=== PATIENT | male | born 1985 | race Caucasian/White ===

== ENCOUNTER 2020-04-05 21:30 | Emergency (ER) | payer OTHER, SELFPAY ==
--- NOTE | ~2020-04-05 | XR_ITS ---
EXAMINATION: XR chest 1V portable EXAM DATE: 04/05/2020 22:01 INDICATION: Left-sided chest pain, shortness of breath. Hypertension. TECHNIQUE: Portable AP frontal chest x-ray was obtained. Comparison is made to prior examination from 04/11/2018. FINDINGS: The lungs are clear. There are no pleural effusions. The cardiomediastinal silhouette is within normal limits. There is no pneumothorax suspected. The bones and soft tissues are unremarkab le. IMPRESSION: No acute cardiopulmonary findings. Reviewed, dictated and finalized at location A. STANT PURCHASING MANAGER
--- NOTE | 2020-04-05 21:37 | ECG_ITS ---
Measurements Intervals [place] Rate: 88 P: 38 NV: 181 QRS: 70 QRSD: 93 T: 41 QT: 353 QTc: 428 Interpretive Statements SINUS RHYTHM ATRIAL PREMATURE COMPLEX BORDERLINE ECG Electronically Signed On 04-06-2020 6:45:37 VERIFICATION MANAGER by Antolin Alvarado D.O.
[2020-04-05 21:40] VITALS: BP 134/100; PULSE 80; RESP 16; TEMP 36.6; O2SAT 98
--- NOTE | 2020-04-05 21:50 | ED.CHESTPAIN ---
HPI - Chest Pain General Chief Complaint: Chest Pain Stated Complaint: chest pain Time Seen by Provider: 04/05/20 21:36 Source: patient Mode of arrival: ambulatory Limitations: no limitations History of Present Illness HPI narrative: Pt is 34 yo M, c/o chest pain, left chest wall, sharp, non radiating, worse with movement and palpation, 09/09, started today. Denies sob, abd pain, n/v, diaphoresis, fever or chills. MD complaint: chest pain Related Data Home Medications Medication Instructions Recorded Confirmed amlodipine 04/05/20 04/05/20 citalopram mg 04/05/20 cyclobenzaprine mg 04/05/20 famotidine 04/05/20 hydrocodone-acetaminophen 04/05/20 irbesartan mg 04/05/20 lisdexamfetamine [Vyvanse] mg 04/05/20 rosuvastatin mg 04/05/20 tadalafil mg 04/05/20 Allergies Allergy/AdvReac Type Severity Reaction Status Date / Time paroxetine Allergy Mild FACIAL RASH Verified 04/05/20 22:01 Penicillins Allergy Unknown Other Verified 04/05/20 22:01 Review of Systems Review of Systems: All systems reviewed & are unremarkable except as noted in HPI and below Constitutional: Constitutional: Denies body ache(s), Denies chills, Denies excessive sweating, Denies fatigue, Denies fever(s), Denies headache(s), Denies lethargy, Denies malaise, Denies weakness and Denies weight loss Eyes: Eyes: Denies blurry vision, Denies change in vision and Denies loss of vision ENT: Denies dizziness, Denies ear discharge, Denies headache(s), Denies lip swelling, Denies epistaxis, Denies nasal congestion, Denies neck pain, Denies throat swelling and Denies tongue swelling Cardiovascular: Cardiovascular: Denies diaphoresis, Denies rapid heart rate, Denies edema, Denies irregular heart rhythm, Denies lightheadedness, Denies palpitations, Denies dyspnea and Denies dyspnea on exertion Respiratory: Respiratory: Denies chest congestion, Denies cough, Denies hemoptysis, Denies dyspnea and Denies dyspnea on exertion Gastrointestinal: Gastrointestinal: Denies abdominal pain, Denies melena, Denies hematochezia, Denies diarrhea, Denies nausea, Denies vomiting and Denies hematemesis Musculoskeletal: Musculoskeletal: Denies abnormal gait, Denies deformity, Denies joint swelling, Denies limited range of motion, Denies neck pain and Denies numbness Neurologic: Denies Abnormal speech present, Denies abnormal gait, Denies confusion, Denies dizziness, Denies headache(s), Denies focal weakness, Denies loss of vision, Denies numbness, Denies Other visual disturbances, Denies Sensory deficit (Neuro) and Denies weakness Psychiatric: Psychiatric: Denies confusion, Denies depression, Denies auditory hallucinations, Denies homicidal ideation and Denies suicidal ideation Endocrine: Endocrine: Denies cold intolerance, Denies excessive sweating, Denies fatigue, Denies heat intolerance and Denies palpitations Hematologic/Lymphatic: Hematologic/Lymphatic: Denies easy bleeding and Denies easy bruising Allergic/Immunologic: Allergic/Immunologic: Denies lip swelling, Denies throat swelling and Denies tongue swelling Exam Const: General: cooperative, healthy appearing, comfortable, no acute distress, well developed, alert and awake; No confusion Orientation/consciousness: oriented to person, oriented to place, oriented to time, patient oriented x3 and No confusion Limitations: no limitations HENMT: Head: normal to inspection, normocephalic and atraumatic Ears: hearing grossly normal bilaterally, TM normal on the right and TM normal on the left General nose exam: Normal external nose present, Normal nares present and No nasal discharge present Face and sinus: normal facial exam Mouth: Yes Normal oral and palatal mucosa present, Yes lip normal, Yes tongue normal and Yes oropharynx normal Throat: posterior oropharynx normal, tonsils normal and uvula midline Eyes: General: appearance normal, both eyes and all related structures Pupils: Equal, round and reactive pupils present EOM: E
[2020-04-05 21:52] LABS: Basophils Percent Auto 0.2 % (0.2-1.2); Eosinophils Absolute Auto 0.1 K/mm3 (0-0.3); Eosinophils Percent Auto 1.3 % (0-4.4); Hematocrit 44.3 % (42.0-52.0); Hemoglobin 15.7 g/dL (14.0-18.0); Immature Granulocyte Absolute 0.02 K/mm3 (0.00-0.031); Immature Granulocyte Percent A 0.2 % (0-0.5); Lymphocytes Absolute Auto 3.85 K/mm3 (0.9-3.2); Lymphocytes Percent Auto 46.8 % (18.3-44.2); Mean Corpuscular HGB Conc 35.4 g/dl (32-36); Mean Corpuscular Volume 81.7 fl (80-100); Mean Platelet Volume 11.9 fl (7.4-10.4); Monocytes Absolute Auto 0.8 K/mm3 (0.1-0.6); Monocytes Percent Auto 9.7 % (2.6-8.5); Neutrophils Absolute Auto 3.4 K/mm3 (1.3-6.7); Neutrophils Percent Auto 41.8 % (45.5-73.1); Platelet Count Result 149 k/mm3 (150-375); Red Blood Count 5.42 M/mm3 (4.6-6.20); Red Cell Distribution Width 12.6 % (11.5-14.5); White Blood Count 8.2 K/mm3 (4.5-10.0)
[2020-04-05 22:01] LABS: INR 0.9; Prothrombin Time 12.8 Seconds (11.1-14.7)
[2020-04-05 22:02] LABS: Partial Thromboplastin Time 24.2 SECONDS (22.3-36.8)
[2020-04-05 22:04] LABS: Alanine Aminotransferase 61 U/L (4-50); Albumin Level 4.5 g/dL (3.5-5.1); Alkaline Phosphatase 61 U/L (38-126); Anion Gap 10 mmol/L (8-16); Aspartate Amino Transferase 34 U/L (17-59); Bilirubin,Total 0.6 mg/dL (0.2-1.3); Blood Urea Nitrogen 13 mg/dL (9-20); Calcium 9.4 mg/dL (8.4-10.2); Carbon Dioxide 26 mmol/L (22-30); Chloride 102 mmol/L (98-107); Estimated CRCL calculation 124 ml/min; Estimated Glomerular Filt Rate > 60; Glucose 102 mg/dL (75-110); Sodium 138 mmol/L (137-145)
[2020-04-05 22:15] LABS: Troponin I < 0.012 ng/mL (0.000-0.034)
[2020-04-05 22:16] VITALS: PULSE 86; RESP 21; O2SAT 96
[2020-04-05 22:17] VITALS: PULSE 92; RESP 19; O2SAT 90
--- NOTE | 2020-04-05 22:38 | PC.NURSE ---
extra large BP cuff placed on patient. lights turned off per his request. denies any other needs. has call light in reach.
[2020-04-05 22:52] VITALS: PULSE 83; RESP 27
[2020-04-05 23:00] VITALS: BP 143/103; PULSE 87; RESP 18; O2SAT 96
--- NOTE | 2020-04-05 23:01 | PC.NURSE ---
resting on stretcher. no change in condition. on playground monitor. has call light in reach.
[2020-04-05 23:34] VITALS: BP 140/105; PULSE 82; RESP 17; O2SAT 97
[2020-04-06] VITALS: BP 137/99; PULSE 84; RESP 17; O2SAT 96
[2020-04-06 01:15] VITALS: BP 139/102; PULSE 82; RESP 18; O2SAT 96
[2020-04-06 01:26] LABS: Troponin I < 0.012 ng/mL (0.000-0.034)
== END 2020-04-06 01:40 | disposition home or self-care (01) ==
PROVIDERS: Emergency Provider Emergency Medicine; PCP Emergency Medicine
DX: R07.89 Other chest pain (principal)
CPT/HCPCS: 36415; 71045; 80053; 84484; 85025; 85610; 85730; 93005; 99284

== ENCOUNTER 2020-07-23 08:32 | Outpatient (CLI) | payer OTHER, SELFPAY ==
--- NOTE | ~2020-07-23 | US_ITS ---
US abdomen complete DATE: 07/23/2020 08:59 INDICATION: Elevated liver function tests TECHNIQUE: Real-time imaging and Doppler analysis of the abdomen COMPARISON: None FINDINGS: The pancreas is largely obscured by overlying bowel gas. Hepatic steatosis. Normal hepatopedal portal venous flow direction. No gallstones or gallbladder wall thickening or pericholecystic fluid is evident. Negative sonographi c Rodriguez's sign. The common bile duct measures 4.6 mm, normal. No renal mass lesion or hydronephrosis. Normal caliber of the abdominal aorta. The inferior vena cava is unremarkable. Splenic size is within normal range. IMPRESSION: Hepatic steatosis Pancreas is obscured Reviewed, dictated and finalized at Location A. Reviewed, dictated and finalized at location A.
== END 2020-07-23 08:33 | disposition home or self-care (01) ==
PROVIDERS: PCP Emergency Medicine; Visit Provider Emergency Medicine
DX: R79.89 Other specified abnormal findings of blood chemistry (principal); K76.0 Fatty (change of) liver, not elsewhere classified
CPT/HCPCS: 76700

== ENCOUNTER → 2020-12-23 01:55 | Outpatient (CLI) | payer OTHER, SELFPAY ==
[2020-12-23 17:06] LABS: SARS-CoV-2 RNA PCR Negative
== END ==
PROVIDERS: PCP Emergency Medicine; Visit Provider Emergency Medicine
DX: Z20.822 Contact with and (suspected) exposure to COVID-19 (principal)
CPT/HCPCS: C9803; U0003; U0005

== ENCOUNTER → 2020-12-25 12:09 | Outpatient (CLI) | payer OTHER, SELFPAY ==
--- NOTE | ~2020-12-25 | XR_ITS ---
EXAMINATION: XR chest 2V DATE: 12/25/2020 12:22 INDICATION: One week of productive cough TECHNIQUE: frontal and lateral views of the chest were obtained. COMPARISON: Chest radiograph dated 04/05/2020 FINDINGS: The lungs remain clear with no focal airspace opacities, pulmonary edema, pleural effusion or pneumot horax. The cardiomediastinal silhouette is normal. Visualized bones and soft tissues are unremarkable . IMPRESSION: 1. No acute cardiopulmonary disease. Reviewed, dictated and finalized at location A.
== END ==
PROVIDERS: PCP Emergency Medicine; Visit Provider Emergency Medicine
DX: J20.9 Acute bronchitis, unspecified (principal)
CPT/HCPCS: 71046

== ENCOUNTER 2020-12-26 14:20 | Emergency (ER) | payer OTHER, SELFPAY ==
--- NOTE | ~2020-12-26 | XR_ITS ---
EXAMINATION: XR foot LT min 3V DATE: 12/26/2020 18:42 INDICATION: Left foot pain at the great toe. TECHNIQUE: Dorsoplantar, two oblique and lateral views of the left foot were obtained. COMPARISON: None. FINDINGS: Bone alignment is normal. No fracture. Mild osteoarthritis at the first metatarsophalangeal joint. Th ere does appear to be a small juxta articular erosion with overhanging edge at the medial head of the first metatarsal which would be typical location and appearance for gout. No other erosions identifi ed. IMPRESSION: 1. Tiny juxta articular erosion at the medial head of the first metatarsal which is nonspecific but w hich would be typical location and appearance for gout. 2. Mild osteoarthritis at the first metatarsophalangeal joint. Reviewed, dictated and finalized at location A. IMPRESSION: 1. Tiny juxta articular erosion at the medial head of the first metatarsal whic h is nonspecific but which would be typical location and appearance for gout. 2. Mild osteoarthritis at the first metatarsophalangeal joint.
[2020-12-26 14:34] VITALS: BP 148/98; PULSE 99; RESP 18; TEMP 36; O2SAT 97
[2020-12-26 18:20] VITALS: BP 140/88; PULSE 90; RESP 18; O2SAT 98
--- NOTE | 2020-12-26 18:33 | ED.LOWEXIN ---
HPI - Extremity Injury (Lower) General Chief Complaint: Extremity Injury, Lower Stated Complaint: foot swelling Time Seen by Provider: 12/26/20 18:23 Source: patient Mode of arrival: ambulatory Limitations: no limitations History of Present Illness HPI Narrative: This is a 35 year old male that presents to the emergency department for left great toe pain since yesterday. Reports swelling and warmth to the area. No known injury or trauma. No history of gout. Denies fever or erythema. Related Data Home Medications Medication Instructions Recorded Confirmed amlodipine 04/05/20 04/05/20 citalopram mg 04/05/20 cyclobenzaprine mg 04/05/20 famotidine 04/05/20 hydrocodone-acetaminophen 04/05/20 irbesartan mg 04/05/20 lisdexamfetamine [Vyvanse] mg 04/05/20 rosuvastatin mg 04/05/20 tadalafil mg 04/05/20 Allergies Allergy/AdvReac Type Severity Reaction Status Date / Time paroxetine Allergy Mild FACIAL RASH Verified 12/26/20 18:20 Penicillins Allergy Unknown Other Verified 12/26/20 18:20 Review of Systems Review of Systems: CONSTITUTIONAL: Denies fever SKIN: Denies rash MUSCULOSKELETAL: Reports joint pain, and myalgia. NEUROLOGIC: Denies numbness All systems reviewed & are unremarkable except as noted in HPI and below PMFSH Past Medical History Medical History (Updated 12/26/20 @ 19:05 by Staci Epstein PA-C) Hypertension Surgical History Surgical History (System 11/08/20 @ 11:26 by Saul White) Biceps tendon rupture with surgical repair. Social History Social History (Updated 12/26/20 @ 18:34 by Staci Epstein PA-C) Smoking status: Never smoker Alcohol use details: Occassional Gender identity (if verbalized by the patient): Male Exam Narrative: GENERAL: Well-appearing, well-nourished, and in no acute distress. HEAD: Normocephalic, atraumatic. EYES: EOMI. EXTREMITIES: Normal range of motion. Mild edema about the left first MTP joint. No erythema or warmth. Normal DP pulses. Normal sensation SKIN: Warm, dry, no rash. NEURO: No focal deficits. Alert and oriented x3. PSYCH: Normal mood and affect Course Vital Signs Vital signs: Vital Signs Temperature 96.8 F L 12/26/20 14:34 Pulse Rate 99 12/26/20 14:34 Respiratory Rate 18 12/26/20 14:34 Blood Pressure 148/98 H 12/26/20 14:34 Pulse Oximetry 97 12/26/20 14:34 Temperature 96.8 F L 12/26/20 14:34 Pulse Rate 90 12/26/20 18:20 Respiratory Rate 18 12/26/20 18:20 Blood Pressure 140/88 12/26/20 18:20 Pulse Oximetry 98 12/26/20 18:20 MDM - Extremity Injury (Lower) MDM Narrative Medical decision making narrative: Patient presents to the emergency department for left great toe pain present since yesterday. He is afebrile and nontoxic-appearing. Symptoms seem consistent with possible gout flare. Mild leukocytosis on CBC to 11.3. CRP is mildly elevated. Uric acid is also elevated. Left foot x-ray shows findings consistent with gout at the first MTP joint. Patient was updated on case findings. Will be started on steroid taper and anti-inflammatory. He is to follow-up with his primary care doctor. He was given warnings to return to the ER Lab Data Attestation: I reviewed the patient's lab results. Result diagrams: 12/26/20 19:20 12/26/20 19:20 Labs: Lab Results 12/26/20 12/26/20 Range/Units 19:20 19:20 WBC 11.3 H (4.5-10.0) K/mm3 RBC 5.34 (4.6-6.20) M/mm3 Hgb 15.4 (14.0-18.0) g/dL Hct 45.7 (42.0-52.0) % MCV 85.6 (80-100) fl MCH 28.8 (26-34) pg MCHC 33.7 (32-36) g/dl RDW 12.3 (11.5-14.5) % Plt Count 197 (150-375) k/mm3 MPV 10.7 H (7.4-10.4) fl Immature Gran % (Auto) 1.1 H (0-0.5) % Neut % (Auto) 69.5 (45.5-73.1) % Lymph % (Auto) 21.0 (18.3-44.2) % [place] % (Auto) 7.6 (2.6-8.5) % Eos % (Auto) 0.5 (0-4.4) % Baso % (Auto) 0.3 (0.2-1.2) % Lymph # (Auto) 2.37 (0.9-3.2) K/mm3 [place] # (Auto
[2020-12-26] MEDS: INDOMETHACIN 25 MG CAPSULE 50 MG PO (19:20)
[2020-12-26] MEDS: predniSONE 20 MG TABLET 40 MG PO (19:22)
[2020-12-26 19:24] LABS: Basophils Percent Auto 0.3 % (0.2-1.2); Eosinophils Absolute Auto 0.1 K/mm3 (0-0.3); Eosinophils Percent Auto 0.5 % (0-4.4); Hematocrit 45.7 % (42.0-52.0); Hemoglobin 15.4 g/dL (14.0-18.0); Immature Granulocyte Absolute 0.12 K/mm3 (0.00-0.031); Immature Granulocyte Percent A 1.1 % (0-0.5); Lymphocytes Absolute Auto 2.37 K/mm3 (0.9-3.2); Mean Corpuscular HGB Conc 33.7 g/dl (32-36); Mean Corpuscular Hemoglobin 28.8 pg (26-34); Mean Corpuscular Volume 85.6 fl (80-100); Mean Platelet Volume 10.7 fl (7.4-10.4); Monocytes Absolute Auto 0.9 K/mm3 (0.1-0.6); Monocytes Percent Auto 7.6 % (2.6-8.5); Neutrophils Absolute Auto 7.8 K/mm3 (1.3-6.7); Neutrophils Percent Auto 69.5 % (45.5-73.1); Platelet Count Result 197 k/mm3 (150-375); Red Blood Count 5.34 M/mm3 (4.6-6.20); Red Cell Distribution Width 12.3 % (11.5-14.5); White Blood Count 11.3 K/mm3 (4.5-10.0)
[2020-12-26 19:42] LABS: Anion Gap 11 mmol/L (8-16); Blood Urea Nitrogen 13 mg/dL (9-20); CRP 1.9 mg/dL (<1.0); Calcium 9.7 mg/dL (8.4-10.2); Carbon Dioxide 30 mmol/L (22-30); Chloride 99 mmol/L (98-107); Estimated CRCL calculation 111 ml/min; Estimated Glomerular Filt Rate > 60; Glucose 100 mg/dL (65-110); Potassium 4.2 mmol/L (3.4-5.0); Sodium 140 mmol/L (137-145); Uric Acid 9.3 mg/dL (3.5-8.5)
[2020-12-26 19:56] LABS: Erythrocyte Sedimentation Rate 10 mm/hr (0-20)
[2020-12-26 20:37] VITALS: BP 141/84; PULSE 84; RESP 18; O2SAT 98
== END 2020-12-26 20:38 | disposition home or self-care (01) ==
PROVIDERS: Physician Assistant; Emergency Provider Emergency Medicine; PCP Emergency Medicine
DX: M10.9 Gout, unspecified (principal); I10 Essential (primary) hypertension
CPT/HCPCS: 36415; 73630; 80048; 84550; 85025; 85652; 86140; 99283; A9270; J7512

== ENCOUNTER 2020-12-30 11:12 | Outpatient (CLI) | payer OTHER, SELFPAY ==
--- NOTE | ~2020-12-30 | US_ITS ---
EXAMINATION: US venous doppler [facility] EXAM DATE: 12/30/2020 11:47 INDICATION: Left lower extremity pain. TECHNIQUE: Multiple grayscale, color flow and Doppler images of the left lower extremity deep venous system were obtained and reviewed. There is no prior study for comparison. FINDINGS: The left common femoral, femoral and profunda veins demonstrate normal color flow, respirat ory variation, augmentation and compressibility. Compressibility, color flow confirmed within the le ft popliteal, posterior tibial, peroneal, and greater saphenous veins. IMPRESSION: 1. No left lower extremity deep venous thrombosis. Reviewed, dictated and finalized at location A.
== END 2020-12-30 11:13 | disposition home or self-care (01) ==
PROVIDERS: PCP Emergency Medicine; Visit Provider Emergency Medicine
DX: M79.662 Pain in left lower leg (principal)
CPT/HCPCS: 93971

== ENCOUNTER → 2021-01-29 00:43 | Outpatient (CLI) | payer OTHER, SELFPAY ==
[2021-01-29 18:23] LABS: SARS-CoV-2 RNA PCR Negative
== END ==
PROVIDERS: PCP Emergency Medicine; Visit Provider Internal Medicine Gastroenterology
DX: Z01.812 Encounter for preprocedural laboratory examination (principal); Z20.822 Contact with and (suspected) exposure to COVID-19
CPT/HCPCS: C9803; U0003; U0005

== ENCOUNTER 2021-02-02 01:52 | Day surgery (SDC) | payer OTHER, SELFPAY ==
[2021-01-17 12:47] VITALS: BMI 40.9
[2021-02-02 08:59] VITALS: BP 129/95; PULSE 81; RESP 20; TEMP 36.3; O2SAT 98
[2021-02-02] MEDS: LACTATED RINGERS 1,000 ML 150 ML IV CONT (09:04)
--- NOTE | 2021-02-02 09:30 | WPDANESEPPF ---
Anes - Initial Pre Proc Eval Procedure: Operation Date: 02/02/21 10:00 Proposed Procedures p Colonoscopy - Siddhartha Anderson MD Date/Time: 02/02/21 09:30 Surgeon: Siddhartha Anderson MD Pre Op Diagnosis: IBS, Diarrhea Patient Data Age: 35 Gender: M Height: 1.78 m Weight: 128 kg Last Vital Signs Temp 97.3 F L 02/02/21 08:59 Pulse 81 02/02/21 08:59 Resp 20 02/02/21 08:59 BP 129/95 H 02/02/21 08:59 Pulse Ox 98 02/02/21 08:59 Allergies Allergy/AdvReac Type Severity Reaction Status Date / Time paroxetine Allergy Mild FACIAL RASH Verified 02/02/21 08:58 Penicillins Allergy Unknown Other Verified 02/02/21 08:58 Home Medications Medication Instructions Recorded Confirmed Type ondansetron 4 mg PO Q6H PRN #10 tablet 02/23/19 02/02/21 Rx amlodipine 10 mg PO DAILY 04/05/20 02/02/21 History citalopram 10 mg PO DAILY 04/05/20 02/02/21 History cyclobenzaprine 10 mg PO DAILY 04/05/20 02/02/21 History famotidine 20 mg PO DAILY 04/05/20 02/02/21 History hydrocodone-acetaminophen 1 tablet PO DAILY 04/05/20 02/02/21 History irbesartan 150 mg PO DAILY 04/05/20 02/02/21 History lisdexamfetamine [Vyvanse] 30 mg PO DAILY 04/05/20 02/02/21 History rosuvastatin 20 mg PO DAILY 04/05/20 02/02/21 History tadalafil 5 mg PO DAILY 04/05/20 02/02/21 History indomethacin 50 mg PO TID 5 Days #15 cap 12/26/20 02/02/21 Rx prednisone 10 mg PO DAILY #45 tablet 12/26/20 02/02/21 Rx Patient hx anesthesia problems: none Family hx anesthesia problems: none Results Review: All pre-operative results and documents have been reviewed as part of the pre-operative evaluation. [facility] Past Medical History Medical History (Updated 12/27/20 @ 00:01 by Background Darussell) Hypertension Surgical History Surgical History (System 11/08/20 @ 11:26 by Saul White) Biceps tendon rupture with surgical repair. Social History Social History (Updated 12/26/20 @ 18:34 by Staci Epstein PA-C) Smoking status: Never smoker Alcohol use details: Occassional Substance use type: does not use Gender identity (if verbalized by the patient): Male Anes - Eval Final PreProcedure Day of Procedure 02/02/21 09:30 Patient weight: morbidly obese Heart: regular rate and rhythm Lungs: clear to auscultation Airway: Mallampati scale class II Neurological: alert and oriented ASA classification: III Emergent: no Anesthetic plan: proceed Anesthesia type and monitoring: general GIVS and standard monitoring Results Review: All pre-operative results and documents have been reviewed as part of the pre-operative evaluation. Informed Consent: The patient's anesthetic plan and its attendant risks and benefits were discussed with the patient/family/POA. Questions were solicited and answers provided to the satisfaction of the patient/family/POA.
--- NOTE | 2021-02-02 09:57 | PM.HPGS ---
History of Present Illness History of Present Illness Consent: Risks, benefits, and alternatives have been discussed and questions answered. Patient agrees to proceed with procedure. Chief complaint: IBS, Diarrhea Narrative: Adrienne Navarrete Jr. is a 35 year old male with 2 years of post-prandial diarrhea and urgency, also bloating. Never had colonoscopy. No abdominal surgeries. Review of Systems Constitutional: Constitutional: Denies headache(s) and Denies weakness Eyes: Eyes: Denies blurry vision ENT: Reports Normal hearing present, Denies headache(s) and Denies neck pain Cardiovascular: Cardiovascular: Denies chest pain and Denies dyspnea Respiratory: Respiratory: Denies dyspnea Gastrointestinal: Gastrointestinal: Reports no additional gastrointestinal complaints Genitourinary: Genitourinary: Denies dysuria Musculoskeletal: Musculoskeletal: Denies neck pain Integumentary/Breasts: Skin/Breast: Denies dry skin Neurologic: Reports Normal hearing present, Denies headache(s) and Denies weakness Psychiatric: Psychiatric: Denies anxiety Endocrine: Endocrine: Denies change in body appearance Hematologic/Lymphatic: Hematologic/Lymphatic: Denies easy bleeding Allergic/Immunologic: Allergic/Immunologic: Denies urticaria PMFSH Past Medical History Medical History (Updated 02/02/21 @ 09:58 by Siddhartha Anderson MD) Bloating Chronic diarrhea Hypertension Surgical History Surgical History (System 11/08/20 @ 11:26 by Saul White) Biceps tendon rupture with surgical repair. Social History Social History (Updated 12/26/20 @ 18:34 by Staci Epstein PA-C) Smoking status: Never smoker Alcohol use details: Occassional Substance use type: does not use Gender identity (if verbalized by the patient): Male Meds Home Medications and Allergies Home Medications Medication Instructions Recorded Confirmed Type ondansetron 4 mg PO Q6H PRN #10 tablet 02/23/19 02/02/21 Rx amlodipine 10 mg PO DAILY 04/05/20 02/02/21 History citalopram 10 mg PO DAILY 04/05/20 02/02/21 History cyclobenzaprine 10 mg PO DAILY 04/05/20 02/02/21 History famotidine 20 mg PO DAILY 04/05/20 02/02/21 History hydrocodone-acetaminophen 1 tablet PO DAILY 04/05/20 02/02/21 History irbesartan 150 mg PO DAILY 04/05/20 02/02/21 History lisdexamfetamine [Vyvanse] 30 mg PO DAILY 04/05/20 02/02/21 History rosuvastatin 20 mg PO DAILY 04/05/20 02/02/21 History tadalafil 5 mg PO DAILY 04/05/20 02/02/21 History indomethacin 50 mg PO TID 5 Days #15 cap 12/26/20 02/02/21 Rx prednisone 10 mg PO DAILY #45 tablet 12/26/20 02/02/21 Rx Allergies Allergy/AdvReac Type Severity Reaction Status Date / Time paroxetine Allergy Mild FACIAL RASH Verified 02/02/21 08:58 Penicillins Allergy Unknown Other Verified 02/02/21 08:58 Vital Signs Vital Signs - 24 hr 02/02/21 08:59 Temperature 97.3 F L Pulse Rate 81 Respiratory Rate 20 Blood Pressure 129/95 H Pulse Oximetry 98 Exam Const: General: comfortable and no acute distress HENMT: General nose exam: Normal nares present Eyes: General: appearance normal, both eyes and all related structures Neck: Neck: no JVD Resp: Auscultation: clear to auscultation bilaterally Cardio: Rate: regular rate Rhythm: regular rhythm GI: Inspection: non-distended GI Palp: Yes Soft to palpation Skin: General skin exam: normal color Neuro: General: gait normal Speech: normal speech Extrem: General: normal to inspection Psych: Mental Status: mental status grossly normal Assessment and Plan Assessment and plan (1) Chronic diarrhea: Code(s): K52.9 - Noninfective gastroenteritis and colitis, unspecified Status: Acute Assessment and Plan: colonoscopy with random colon bx, ? IBS, colitis (2) Bloating: Code(s): R14.0 - Abdominal distension (gaseous) Status: Acute Assessment and Plan: will get serology for celiac disease
[2021-02-02 10:15] VITALS: BP 108/73; PULSE 84; RESP 24; O2SAT 100
[2021-02-02 10:25] VITALS: BP 137/97; PULSE 89; RESP 20; O2SAT 100
[2021-02-02 10:35] VITALS: BP 140/96; PULSE 69; RESP 20; O2SAT 100
== END 2021-02-02 10:49 | disposition home or self-care (01) ==
PROVIDERS: PCP Emergency Medicine; Visit Provider Internal Medicine Gastroenterology
PROC: 0DJD8ZZ Inspection of Lower Intestinal Tract, Via Natural or Artificial Opening Endoscopic (ICD-10-PCS; CPT 45378; principal; 2021-02-02 10:00)
DX: K58.0 Irritable bowel syndrome with diarrhea (principal); K62.1 Rectal polyp; K64.8 Other hemorrhoids; I10 Essential (primary) hypertension; R14.0 Abdominal distension (gaseous); E66.01 Morbid (severe) obesity due to excess calories; Z68.41 Body mass index [BMI] 40.0-44.9, adult
CPT/HCPCS: 45380; 88305; J2704; J7120

== ENCOUNTER 2021-02-14 12:24 | Outpatient (CLI) | payer OTHER, SELFPAY ==
[2021-02-17 21:44] LABS: Tissue Transglutaminase IgG Ab <1.0 U/mL (<15.0)
== END 2021-02-14 12:25 | disposition home or self-care (01) ==
LOC: ANHLAB 12:25
PROVIDERS: PCP Emergency Medicine; Visit Provider Internal Medicine Gastroenterology
DX: R14.0 Abdominal distension (gaseous) (principal); K52.9 Noninfective gastroenteritis and colitis, unspecified
CPT/HCPCS: 36415; 83516

== ENCOUNTER 2021-10-09 10:10 | Emergency (ER) | payer OTHER, SELFPAY ==
--- NOTE | ~2021-10-09 | XR_ITS ---
EXAMINATION: XR knee LT 3V DATE: 10/09/2021 11:15 INDICATION: Medial left knee pain TECHNIQUE: Anteroposterior, oblique and crosstable lateral views of the left knee were obtained COMPARISON: None. FINDINGS: Alignment is normal. No fracture. No joint effusion/layering lipohemarthrosis. Soft tissues are unre markable. IMPRESSION: 1. Negative left knee radiographs. Reviewed, dictated and finalized at location A.
[2021-10-09 10:16] VITALS: BP 143/96; PULSE 86; RESP 16; TEMP 36.4; O2SAT 97
[2021-10-09] MEDS: NAPROXEN 500 MG TABLET PO (10:52)
--- NOTE | 2021-10-09 11:03 | PC.NURSE ---
Patient report given to ANSHUL Das. All questions answered and care of patient transferred.
--- NOTE | 2021-10-09 12:20 | ED.LOWEXIN ---
HPI - Extremity Injury (Lower) General Chief Complaint: Extremity Injury, Lower Stated Complaint: left knee injury - fell 1 month ago and again yest Time Seen by Provider: 10/09/21 10:36 History of Present Illness HPI Narrative: 36-year-old male presents emergency room secondary to pain to his left knee. States several weeks ago he slipped off the back of his truck and injured a medial aspect of his left knee. He been hobbling on it ever since. Then yesterday he fell again injuring the knee again. This is the first time he sought any medical care for it. He is able to bear weight on it but hurts to do so. Denies any chronic ongoing issues with his knee. Related Data Home Medications Medication Instructions Recorded Confirmed amlodipine 10 mg tablet 10 mg PO DAILY 04/05/20 02/02/21 citalopram 10 mg tablet 10 mg PO DAILY 04/05/20 02/02/21 cyclobenzaprine 10 mg tablet 10 mg PO DAILY 04/05/20 02/02/21 famotidine 20 mg tablet 20 mg PO DAILY 04/05/20 02/02/21 hydrocodone 7.5 mg-acetaminophen 1 tablet PO DAILY 04/05/20 02/02/21 325 mg tablet irbesartan 150 mg tablet 150 mg PO DAILY 04/05/20 02/02/21 lisdexamfetamine 30 mg capsule 30 mg PO DAILY 04/05/20 02/02/21 (Vyvanse) rosuvastatin 20 mg tablet 20 mg PO DAILY 04/05/20 02/02/21 tadalafil 5 mg tablet 5 mg PO DAILY 04/05/20 02/02/21 allopurinol 100 mg tablet tablet 10/09/21 trazodone 50 mg tablet tablet 10/09/21 Allergies Allergy/AdvReac Type Severity Reaction Status Date / Time paroxetine Allergy Mild FACIAL RASH Verified 10/09/21 10:53 Penicillins Allergy Unknown Other Verified 10/09/21 10:53 Review of Systems Review of Systems: CONSTITUTIONAL: Denies fever, chills, or sweats. EYES: Denies visual changes, redness, or discharge. ENT: Denies rhinorrhea, congestion, sore throat, or otalgia. CARDIOVASCULAR: Denies chest pain, palpitations, or edema. RESPIRATORY: Denies cough or dyspnea. GASTROINTESTINAL: Denies abdominal pain, nausea, vomiting, or diarrhea. GENITOURINARY: Denies dysuria or hematuria. SKIN: Denies rash or itching. MUSCULOSKELETAL: Pain to his left knee as noted in HPI NEUROLOGIC: Denies headache, numbness, or weakness. PSYCHIATRIC: Denies anxiety or depression. [facility] Past Medical History Medical History Bloating Chronic diarrhea Colon cancer screening GERD (gastroesophageal reflux disease) Hypertension Irritable bowel syndrome with diarrhea Obesity, morbid, BMI 40.0-49.9 Surgical History Surgical History Biceps tendon rupture with surgical repair. Social History Social History Smoking status: Never smoker Alcohol use details: Occassional Substance use type: does not use Gender identity (if verbalized by the patient): Male Exam Narrative: APPEARANCE: Well appearing, no pain or distress, well-nourished. Head normocephalic and atraumatic. EYES: PERRLA/EOMI, conjunctivae very clear. NOSE: Normal with no drainage EARS:TMS clear Aníbal Bobby, with good light reflex. THROAT: Pharynx clear, no exudate. NECK: Supple. No adenopathy, no masses. RESPIRATORY: Airway patent, respirations nonlabored. Clear to auscultation bilaterally, no rales, rhonchi, wheezing. CARDIOVASCULAR: Regular rate and rhythm without murmurs, rubs, or gallops. ABDOMINAL: Soft, nontender, nondistended, no hepatosplenomegaly Musculoskeletal: No edema is noted. Is no hip tenderness to palpation to the left knee on the medial aspect just inferior to the joint space. Pain with active or passive range of motion. There is no effusion. Good pulses. NEURO: Alert. Cranial nerves II through XII intact. Normal gait. Good coordination. Nonfocal examination. SKIN:: Warm, dry. Normal Color PSYCHIATRIC: Normal affect/mood, normal interaction Course Vital Signs Vital signs: Vital Signs Temperature 97.6 F 10/09/21
[2021-10-09 12:32] VITALS: BP 109/96; PULSE 84; RESP 16; O2SAT 98
== END 2021-10-09 12:33 | disposition home or self-care (01) ==
PROVIDERS: Emergency Provider Emergency Medicine; PCP Emergency Medicine
DX: M23.92 Unspecified internal derangement of left knee (principal); S89.92XA Unspecified injury of left lower leg, initial encounter; K21.9 Gastro-esophageal reflux disease without esophagitis; I10 Essential (primary) hypertension; K58.0 Irritable bowel syndrome with diarrhea; E66.01 Morbid (severe) obesity due to excess calories; Z68.41 Body mass index [BMI] 40.0-44.9, adult; W17.89XA Other fall from one level to another, initial encounter
CPT/HCPCS: 73562; 99283; A9270

== ENCOUNTER 2021-12-14 17:55 | Emergency (ER) | payer OTHER, SELFPAY ==
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
--- NOTE | ~2021-12-14 | CT_ITS ---
EXAMINATION: CT cervical spine wo con DATE: 12/14/2021 23:04 INDICATION: Neck pain TECHNIQUE: Computed tomography (CT) of the cervical spine was performed without intravenous contrast. The dose-length product (DLP) was 588.09 mGy-cm. Automated exposure control and iterative reconstruc tion technique were employed. COMPARISON: None FINDINGS: There is no fracture, dislocation, or subluxation. The vertebral body heights, alignment, a nd intervertebral disc spaces are normal. The paravertebral soft tissues are unremarkable. IMPRESSION: 1. No acute osseous abnormality. Reviewed, dictated and finalized at location B.
[2021-12-14 17:58] VITALS: BP 142/103; PULSE 94; RESP 14; TEMP 36.2; O2SAT 98
[2021-12-14 22:21] VITALS: BP 142/95; PULSE 82; RESP 16; O2SAT 94
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
--- NOTE | 2021-12-14 23:20 | PC.NURSE ---
Offered pain med to pt asks for 5 mins and will let RN know if wants
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
== END 2021-12-14 23:53 | disposition home or self-care (01) ==
PROVIDERS: Emergency Provider Emergency Medicine; PCP Emergency Medicine
DX: S16.1XXA Strain of muscle, fascia and tendon at neck level, initial encounter (principal); V43.52XA Car driver injured in collision with other type car in traffic accident, initial encounter
CPT/HCPCS: 70450; 72125; 99284

== ENCOUNTER 2022-03-06 19:36 | Emergency (ER) | payer OTHER, SELFPAY ==
[2022-03-06 20:11] VITALS: BP 158/116; PULSE 90; RESP 16; TEMP 37.2; O2SAT 99
[2022-03-06 20:34] LABS: Appearance Urine Clear (Clear); Bilirubin Urine Negative (Negative); Blood Urine Trace-intact (Negative); Color Urine Yellow (Yellow); Glucose Urine UA Negative (Negative); Ketones Urine Negative (Negative); Leukocyte Esterase Ur Negative LEU/UL (Negative); Nitrate Urine Negative (Negative); Protein Urine Negative (Negative); Specific Grav Ur >= 1.030 (1.001-1.035)
[2022-03-06 20:40] LABS: Mucus Urine Rare /lpf; Squamous Epithelial Cell Urine Rare /hpf (Few)
[2022-03-06 20:41] LABS: Add Urine Microscopic? YES
--- NOTE | 2022-03-06 21:40 | ED.GENADULT ---
HPI - General Adult General Chief complaint: Urogenital-Male Stated complaint: painful urination Time Seen by Provider: 03/06/22 20:51 History of Present Illness HPI narrative: 36-year-old male presented to the emergency department for evaluation of urethral irritation. Patient states he has had the irritation for extended period of time. Patient did have follow-up with his primary care physician and was started on a course of antibiotic. Patient is unsure of what the antibiotic was. Patient states he is and states he has low personal concern for STI. Patient also describes some redness of the glans. Patient also reported some redness and itching of the scrotum as well. Patient denies any urinary discharge. Patient does report some pain with urination. Patient denies any prior history of kidney stones. Related Data Home Medications Medication Instructions Recorded Confirmed amlodipine 10 mg tablet 10 mg PO DAILY 04/05/20 02/02/21 citalopram 10 mg tablet 10 mg PO DAILY 04/05/20 02/02/21 cyclobenzaprine 10 mg tablet 10 mg PO DAILY 04/05/20 02/02/21 famotidine 20 mg tablet 20 mg PO DAILY 04/05/20 02/02/21 hydrocodone 7.5 mg-acetaminophen 1 tablet PO DAILY 04/05/20 02/02/21 325 mg tablet irbesartan 150 mg tablet 150 mg PO DAILY 04/05/20 02/02/21 lisdexamfetamine 30 mg capsule 30 mg PO DAILY 04/05/20 02/02/21 (Vyvanse) rosuvastatin 20 mg tablet 20 mg PO DAILY 04/05/20 02/02/21 tadalafil 5 mg tablet 5 mg PO DAILY 04/05/20 02/02/21 allopurinol 100 mg tablet tablet 10/09/21 trazodone 50 mg tablet tablet 10/09/21 Allergies Allergy/AdvReac Type Severity Reaction Status Date / Time No Known Allergies Allergy Verified 12/14/21 18:04 Review of Systems Review of Systems: CONSTITUTIONAL: Denies fever, chills, or sweats. EYES: Denies visual changes, redness, or discharge. ENT: Denies rhinorrhea, congestion, sore throat, or otalgia. CARDIOVASCULAR: Denies chest pain, palpitations, or edema. RESPIRATORY: Denies cough or dyspnea. GASTROINTESTINAL: Denies abdominal pain, nausea, vomiting, or diarrhea. GENITOURINARY: See HPI SKIN: Denies rash or itching. MUSCULOSKELETAL: Denies back pain, joint pain, or myalgia. NEUROLOGIC: Denies headache, numbness, or weakness. [facility] Past Medical History Medical History Bloating Chronic diarrhea Colon cancer screening GERD (gastroesophageal reflux disease) Hypertension Irritable bowel syndrome with diarrhea Obesity, morbid, BMI 40.0-49.9 Surgical History Surgical History Biceps tendon rupture with surgical repair. Social History Social History Smoking status: Never smoker Alcohol use details: Occassional Substance use type: does not use Gender identity (if verbalized by the patient): Male Exam Narrative: APPEARANCE: Well appearing, no pain, no distress, well-nourished. HEAD: normocephalic, atraumatic. EYES: PERRLA/EOMI, conjunctivae clear. NOSE: Normal no drainage NECK: Supple. No adenopathy, no masses. RESPIRATORY: Airway patent, respirations nonlabored. Clear to auscultation bilaterally, no rales, rhonchi, wheezing. CARDIOVASCULAR: Regular rate and rhythm without murmurs rubs or gallops. ABDOMINAL: Soft, nontender, nondistended, normal bowel sounds MUSCULOSKELETAL: Moves all extremities. Strength/ROM intact, No edema, No calf tenderness. NEURO: Alert. Cranial nerves II through XII intact. Good gait. Good coordination Genitourinary:. Erythema at the urethral meatus, mild erythema at the proximal glans. No penile discharge, no chancres, SKIN: Warm, dry. Normal Color Course Course Emergency Course: UA showed no evidence of urinary tract infection. GC chlamydia was ordered of the urine. Patient was treated with 500 IM Rocephin also started on doxycycline. Patient was also gi
[2022-03-06] MEDS: FLUCONAZOLE 150 MG TABLET PO (21:44)
[2022-03-06] MEDS: DOXYCYCLINE HYCLATE 100 MG TABLET PO (21:44)
[2022-03-06] MEDS: cefTRIAXone 1 GM VIAL 0.5 GM IM (21:44)
[2022-03-06] MEDS: WATER, STERILE FOR INJECTION 10 ML VIAL XX (21:45)
[2022-03-06 22:15] VITALS: BP 126/80; PULSE 74; RESP 16; TEMP 36.8; O2SAT 100
== END 2022-03-06 22:20 | disposition home or self-care (01) ==
PROVIDERS: Emergency Medicine; Emergency Provider Emergency Medicine; PCP Emergency Medicine
DX: N34.2 Other urethritis (principal); I10 Essential (primary) hypertension; K21.9 Gastro-esophageal reflux disease without esophagitis; K58.0 Irritable bowel syndrome with diarrhea; E66.01 Morbid (severe) obesity due to excess calories; Z68.41 Body mass index [BMI] 40.0-44.9, adult
CPT/HCPCS: 81001; 96372; 99283; A9270; J0696

== ENCOUNTER 2022-04-02 16:35 | Emergency (ER) | payer OTHER, SELFPAY ==
[2022-04-02 17:02] VITALS: BP 140/92; PULSE 93; RESP 18; TEMP 36.3; O2SAT 98
--- NOTE | 2022-04-02 20:05 | ED.MALEGU ---
HPI - Male Genitourinary General Chief complaint: Urogenital-Male Stated complaint: pain in his urethra months Time Seen by Provider: 04/02/22 19:34 History of Present Illness HPI Narrative: Patient is a 36-year-old male who presents ER with pain at the tip of his penis. Reports over the last month he has been having discomfort at his urethral meatus and also has pain with pain. He was evaluated for sexually transmitted infection and also treated for sexually transmitted infection despite testing negative. None of this improved his symptoms. He is also tried topical steroid cream without improvement. The tip of his penis has a small red irritated area. Related Data Home Medications Medication Instructions Recorded Confirmed amlodipine 10 mg tablet 10 mg PO DAILY 04/05/20 02/02/21 citalopram 10 mg tablet 10 mg PO DAILY 04/05/20 02/02/21 cyclobenzaprine 10 mg tablet 10 mg PO DAILY 04/05/20 02/02/21 famotidine 20 mg tablet 20 mg PO DAILY 04/05/20 02/02/21 hydrocodone 7.5 mg-acetaminophen 1 tablet PO DAILY 04/05/20 02/02/21 325 mg tablet irbesartan 150 mg tablet 150 mg PO DAILY 04/05/20 02/02/21 lisdexamfetamine 30 mg capsule 30 mg PO DAILY 04/05/20 02/02/21 (Vyvanse) rosuvastatin 20 mg tablet 20 mg PO DAILY 04/05/20 02/02/21 tadalafil 5 mg tablet 5 mg PO DAILY 04/05/20 02/02/21 allopurinol 100 mg tablet tablet 10/09/21 trazodone 50 mg tablet tablet 10/09/21 Allergies Allergy/AdvReac Type Severity Reaction Status Date / Time No Known Allergies Allergy Verified 12/14/21 18:04 Review of Systems Gastrointestinal: Gastrointestinal: Denies nausea and Denies vomiting Genitourinary: Genitourinary: Denies hematuria, Reports genital lesions, Reports dysuria, Denies penile discharge and Denies testicular pain PMFSH Past Medical History Medical History Bloating Chronic diarrhea Colon cancer screening GERD (gastroesophageal reflux disease) Hypertension Irritable bowel syndrome with diarrhea Obesity, morbid, BMI 40.0-49.9 Surgical History Surgical History Biceps tendon rupture with surgical repair. Social History Social History Smoking status: Never smoker Alcohol use details: Occassional Substance use type: does not use Gender identity (if verbalized by the patient): Male Exam Narrative: GENERAL: Well-appearing, well-nourished, and in no acute distress. HEAD: Normocephalic, atraumatic. : At the urethral meatus on the right side inferiorly there is a pink irregularity. No bleeding or ulceration. No other lesions to the glans or penile shaft. No urethral discharge. EXTREMITIES: Normal range of motion. No edema. SKIN: Warm, dry, no rash. NEURO: Alert and oriented x3. PSYCH: Normal mood and affect. Course Course Emergency Course: Discussed possible diagnoses with patient. My biggest concern is that he likely has a genital wart that is causing pain and irritation. He reports symptoms began just after Thanksgiving after he had a 3-week illness. Recommend follow-up with urology for definitive diagnosis and care. Vital Signs Vital signs: Vital Signs Temperature 97.3 F L 04/02/22 17:02 Pulse Rate 93 04/02/22 17:02 Respiratory Rate 18 04/02/22 17:02 Blood Pressure 140/92 H 04/02/22 17:02 Pulse Oximetry 98 04/02/22 17:02 Oxygen Delivery Room Air 04/02/22 17:02 Temperature 97.3 F L 04/02/22 17:02 Pulse Rate 93 04/02/22 17:02 Respiratory Rate 18 04/02/22 17:02 Blood Pressure 140/92 H 04/02/22 17:02 Pulse Oximetry 98 04/02/22 17:02 Oxygen Delivery Room Air 04/02/22 17:02 MDM - Male Genitourinary Lab Data Labs: Urine Characteristics Clear Discharge Plan Discharge Clinical Impression: Urethral lesion
== END 2022-04-02 20:15 | disposition home or self-care (01) ==
PROVIDERS: Emergency Provider Emergency Medicine; PCP Emergency Medicine
DX: N36.8 Other specified disorders of urethra (principal); I10 Essential (primary) hypertension; K58.0 Irritable bowel syndrome with diarrhea; K21.9 Gastro-esophageal reflux disease without esophagitis; E66.01 Morbid (severe) obesity due to excess calories; Z68.41 Body mass index [BMI] 40.0-44.9, adult
CPT/HCPCS: 99281

== ENCOUNTER 2022-08-21 11:19 | Outpatient (CLI) | payer OTHER, SELFPAY ==
--- NOTE | ~2022-08-21 | US_ITS ---
US scrotum doppler INDICATION: Inflammatory changes of the penis TECHNIQUE: Testicular sonogram utilizing grayscale and color Doppler FINDINGS: The testes are normal in size and appearance. No focal lesions are seen. The right testes measures 5 x 2.1 x 3.3 cm centimeters, and the left testis measures 4.7 x 2.4 x 3.3 cm cm. There is normal vascular flow to sue th testes. The right and left epididymides appear normal. There is no varicocele or hydrocele. IMPRESSION: 1. NORMAL TESTICULAR ULTRASOUND. Reviewed, dictated and finalized at location B.
== END 2022-08-21 11:20 | disposition home or self-care (01) ==
PROVIDERS: PCP Emergency Medicine; Visit Provider Emergency Medicine
DX: N48.29 Other inflammatory disorders of penis (principal)
CPT/HCPCS: 76870; 93976

== ENCOUNTER 2022-08-27 21:26 | Emergency (ER) | payer OTHER, SELFPAY ==
[2022-08-27 21:38] VITALS: BP 138/87; PULSE 97; RESP 18; TEMP 36.2; O2SAT 98
--- NOTE | 2022-08-27 22:05 | ED.EXTPRO ---
HPI - Extremity Problem General Chief complaint: Extremity Problem,Nontraumatic Stated complaint: Left foot gout attack Time Seen by Provider: 08/27/22 21:43 History of Present Illness HPI Narrative: Patient is a 37-year-old male here for evaluation of left toe pain, redness and swelling x 2 days. Patient states that he has history of gout and pain feels similar. Has been able to walk which he states is painful. Reports dietary indiscretions. He does take daily allopurinol and follows with a supervisor sample. Has not attempted any other medicines for his symptoms. No fevers, chills, systemic symptoms. Related Data Home Medications Medication Instructions Recorded Confirmed amlodipine 10 mg tablet 10 mg PO DAILY 04/05/20 02/02/21 citalopram 10 mg tablet 10 mg PO DAILY 04/05/20 02/02/21 cyclobenzaprine 10 mg tablet 10 mg PO DAILY 04/05/20 02/02/21 famotidine 20 mg tablet 20 mg PO DAILY 04/05/20 02/02/21 hydrocodone 7.5 mg-acetaminophen 1 tablet PO DAILY 04/05/20 02/02/21 325 mg tablet irbesartan 150 mg tablet 150 mg PO DAILY 04/05/20 02/02/21 lisdexamfetamine 30 mg capsule 30 mg PO DAILY 04/05/20 02/02/21 (Vyvanse) rosuvastatin 20 mg tablet 20 mg PO DAILY 04/05/20 02/02/21 tadalafil 5 mg tablet 5 mg PO DAILY 04/05/20 02/02/21 allopurinol 100 mg tablet tablet 10/09/21 trazodone 50 mg tablet tablet 10/09/21 Allergies Allergy/AdvReac Type Severity Reaction Status Date / Time No Known Allergies Allergy Verified 08/27/22 21:27 Review of Systems Review of Systems: Gen: Denies fevers or chills Eyes: Denies eye pain or visual change ENT: Denies congestion Respiratory: Denies shortness of breath or cough CV: Denies chest pain or palpitations GI: Denies abdominal pain nausea, emesis or diarrhea : denies burning, urgency, frequency or hematuria Musculoskeletal: Reports toe pain Neuro: Denies numbness, tingling, weakness or focal weakness Skin: Denies rash Except as documented, all other systems reviewed and negative PMFSH Past Medical History Medical History Bloating Chronic diarrhea Colon cancer screening GERD (gastroesophageal reflux disease) Hypertension Irritable bowel syndrome with diarrhea Obesity, morbid, BMI 40.0-49.9 Surgical History Surgical History Biceps tendon rupture with surgical repair. Social History Social History Smoking status: Never smoker Alcohol use details: Occassional Substance use type: does not use Gender identity (if verbalized by the patient): Male Exam Narrative: APPEARANCE: Well appearing, no pain in distress, well-nourished. Head: Normocephalic and atraumatic. EYES: PERRLA/EOMI, conjunctivae clear NOSE: No nasal drainage EARS: External ear normal in appearance THROAT: Oropharynx is clear. Mucous membranes are moist. NECK: Supple. No adenopathy, no masses. RESPIRATORY: Airway patent, respirations nonlabored. Clear to auscultation bilaterally, no rales, rhonchi, wheezing. CARDIOVASCULAR: Regular rate and rhythm without murmurs, rubs, or gallops. ABDOMINAL: Normoactive bowel sounds. Soft, nontender, nondistended. No rebound tenderness or guarding. MUSCULOSKELETAL: There is redness and swelling to the left great toe, no pain with passive range of motion but there is some pain with active range of motion. Extremities are warm and well-perfused. Moves all extremities well. No edema. NEURO: Normal speech. No focal neurologic deficits. SKIN: Skin is warm and dry. No rashes. PSYCHIATRIC: Normal affect/mood.. Course Vital Signs Vital signs: Vital Signs Temperature 97.2 F L 08/27/22 21:38 Pulse Rate 97 08/27/22 21:38 Respiratory Rate 18 08/27/22 21:38 Blood Pressure 138/87 08/27/22 21:38 Pulse Oximetry 98 08/27/22 21:38 Oxygen Delivery Room Air 08/27/22 2
[2022-08-27] MEDS: INDOMETHACIN 25 MG CAPSULE 50 MG PO (22:13)
[2022-08-27] MEDS: predniSONE 20 MG TABLET 40 MG PO (22:13)
== END 2022-08-27 22:25 | disposition home or self-care (01) ==
PROVIDERS: Emergency Provider Physician Assistant; PCP Emergency Medicine
DX: M10.9 Gout, unspecified (principal); I10 Essential (primary) hypertension; K21.9 Gastro-esophageal reflux disease without esophagitis; K58.0 Irritable bowel syndrome with diarrhea; E66.01 Morbid (severe) obesity due to excess calories; Z68.41 Body mass index [BMI] 40.0-44.9, adult
CPT/HCPCS: 99283; A9270; J7512

== ENCOUNTER 2022-09-03 05:25 | Emergency (ER) | payer OTHER, SELFPAY ==
--- NOTE | ~2022-09-03 | XR_ITS ---
XR knee LT 3V DATE: 09/03/2022 06:59 INDICATION: Left knee pain following fall TECHNIQUE: 3 views COMPARISON: 10/09/2021 left knee FINDINGS: No fracture or dislocation or joint effusion. Joint spaces are relatively preserved. No rad iopaque intra-articular loose body or chondrocalcinosis. IMPRESSION: Negative Reviewed, dictated and finalized at location A. IMPRESSION: Negative
--- NOTE | ~2022-09-03 | XR_ITS ---
XR hip LT min 3V w AP pelvis DATE: 09/03/2022 06:59 INDICATION: Left hip pain after fall TECHNIQUE: AP pelvis. AP, lateral and crosstable lateral views of left hip COMPARISON: None FINDINGS: No pelvic fracture or bone destruction is detected. The pubic symphysis and sacral iliac sahara ints are intact. No fracture or dislocation, avascular necrosis or bone destruction of the left hip is detected. IMPRESSION: No pelvic or left hip fracture or dislocation Reviewed, dictated and finalized at location A.
[2022-09-03 05:34] VITALS: BP 153/115; PULSE 87; RESP 18; TEMP 36.5; O2SAT 99
--- NOTE | 2022-09-03 06:34 | ED.GENADULT ---
HPI - General Adult General Chief complaint: Extremity Injury, Lower <Spencer Fields MD - Last Filed: 09/03/22 06:44> Stated complaint: L knee pain <Spencer Fields MD - Last Filed: 09/03/22 06:44> Time Seen by Provider: 09/03/22 06:27 <Spencer Fields MD - Last Filed: 09/03/22 06:44> History of Present Illness HPI narrative: Patient 47-year-old gentleman who presents emergency department with chief complaint of left leg pain. The patient reports that last night he tripped over his cat and landed on his knees. The patient reports that he has severe pain in the left knee reports that it is worsened whenever he tries to straighten out his leg reports that he cannot fully extend his leg at this point the patient reports that whenever he tries to ambulate or put weight on the leg it causes severe pain and he is unable to walk on it currently <Spencer Fields MD - Last Filed: 09/03/22 06:44> Related Data Home medications: Home Medications Medication Instructions Recorded Confirmed amlodipine 10 mg tablet 10 mg PO DAILY 04/05/20 02/02/21 citalopram 10 mg tablet 10 mg PO DAILY 04/05/20 02/02/21 cyclobenzaprine 10 mg tablet 10 mg PO DAILY 04/05/20 02/02/21 famotidine 20 mg tablet 20 mg PO DAILY 04/05/20 02/02/21 hydrocodone 7.5 mg-acetaminophen 1 tablet PO DAILY 04/05/20 02/02/21 325 mg tablet irbesartan 150 mg tablet 150 mg PO DAILY 04/05/20 02/02/21 lisdexamfetamine 30 mg capsule 30 mg PO DAILY 04/05/20 02/02/21 (Vyvanse) rosuvastatin 20 mg tablet 20 mg PO DAILY 04/05/20 02/02/21 tadalafil 5 mg tablet 5 mg PO DAILY 04/05/20 02/02/21 allopurinol 100 mg tablet tablet 10/09/21 trazodone 50 mg tablet tablet 10/09/21 <Spencer Fields MD - Last Filed: 09/03/22 06:44> Allergies/adverse reactions: Allergies Allergy/AdvReac Type Severity Reaction Status Date / Time No Known Allergies Allergy Verified 08/27/22 21:27 <Spencer Fields MD - Last Filed: 09/03/22 06:44> Review of Systems Review of Systems: A 10 system review of systems was completed on the patient and is negative except for what is stated in the HPI. Nursing and ancillary documentation was reviewed. <Spencer Fields MD - Last Filed: 09/03/22 06:44> [facility] Past Medical History Medical History: Medical History Bloating Chronic diarrhea Colon cancer screening GERD (gastroesophageal reflux disease) Hypertension Irritable bowel syndrome with diarrhea Obesity, morbid, BMI 40.0-49.9 <Spencer Fields MD - Last Filed: 09/03/22 06:44> Surgical History Surgical History: Surgical History Biceps tendon rupture with surgical repair. <Spencer Fields MD - Last Filed: 09/03/22 06:44> Social History Social History: Social History Smoking status: Never smoker Alcohol use details: Occassional Substance use type: does not use Gender identity (if verbalized by the patient): Male <Spencer Fields MD - Last Filed: 09/03/22 06:44> Exam Narrative: GENERAL: Well-appearing, well-nourished, and in no acute distress. HEAD: Normocephalic, atraumatic. EYES: PERRLA and EOMI. ENT: Nares clear, no rhinorrhea or epistaxis. Mucous membranes moist. NECK: Supple. CHEST: Clear to auscultation. No respiratory distress. HEART: Regular rate and rhythm. No murmur heard. Normal peripheral pulses. ABDOMEN: Soft, nontender, nondistended, normal active bowel sounds. EXTREMITIES: Decreased l range of motion left knee. No edema. There is tenderness to palpation in the left hip and in the left knee area. There is no edema SKIN: Warm, dry, no rash. NEURO: No focal deficits. Alert and oriented x3. PSYCH: Normal mood and affect. <Spencer Ford
[2022-09-03] MEDS: HYDROcodone/acetaminophen (*CRX) 5-325 MG TABLET 1 TAB PO ×2 (06:36→09:26)
[2022-09-03] MEDS: KETOROLAC 30 MG/ML VIAL (*BKC) IM (09:25)
[2022-09-03 09:40] VITALS: BP 123/69; PULSE 87; RESP 20; O2SAT 98
== END 2022-09-03 09:41 | disposition home or self-care (01) ==
PROVIDERS: Emergency Provider Emergency Medicine; PCP Emergency Medicine
DX: M23.92 Unspecified internal derangement of left knee (principal); W01.0XXA Fall on same level from slipping, tripping and stumbling without subsequent striking against object, initial encounter; I10 Essential (primary) hypertension; K58.0 Irritable bowel syndrome with diarrhea; K21.9 Gastro-esophageal reflux disease without esophagitis; E66.01 Morbid (severe) obesity due to excess calories; Z68.41 Body mass index [BMI] 40.0-44.9, adult
CPT/HCPCS: 73502; 73562; 96372; 99284; A9270; J1885

== ENCOUNTER 2023-03-22 12:32 | Outpatient (CLI) | payer OTHER, SELFPAY ==
--- NOTE | ~2023-03-22 | MR_ITS ---
EXAMINATION: MR lower leg RT wo con DATE: 03/22/2023 13:28 INDICATION: Right lower leg pain TECHNIQUE: Magnetic resonance imaging (MRI) of the right lower leg was performed without intravenous contrast. Sequences included axial T1-weighted FSE, axial T2-weighted FS FSE, coronal T1-weighted FS E, coronal T2-weighted FS FSE, sagittal T1-weighted FSE and sagittal T2-weighted FS FSE. Precontrast axial T1-weighted FS FSE and post contrast axial, sagittal and coronal T1-weighted FS FSE were also o btained. The contralateral left lower leg is included on the coronal images. COMPARISON: None. FINDINGS: Bone alignment is normal in the bilateral lower legs. There is normal bone marrow signal throughout w ith no reactive edema, fracture or pathologic marrow replacing process. No knee or ankle joint effusi ons. There is a near complete medial head of the gastrocnemius muscle tear along the deep margin of t he muscle belly and the underlying gastrocnemius aponeurosis. A minimal portion of the inferolateral aspect of the medial head appears to remain attached. There is a lenticular hematoma at the site of t he tear which measures 16.3 cm craniocaudally and 7.5 x 1.4 cm maximal transaxial dimensions with dep endently layering hematocrit level. There is up to 2.5 cm proximal retraction of portions of the dist al muscular side of the tear margin. No fatty muscular atrophy with otherwise symmetric musculature i n the bilateral calves. IMPRESSION: 1. Large high-grade strain/near complete tear of the myotendinous junction of the right medial head o f the gastrocnemius muscle and the underlying gastrocnemius aponeurosis. Reviewed, dictated and finalized at location A. SCIENCE TECHNICIAN IMPRESSION: 1. Large high-grade strain/near complete tear of the myotendinous junction of t he right medial head of the gastrocnemius muscle and the underlying gastrocnemi us aponeurosis.
== END 2023-03-22 12:33 | disposition home or self-care (01) ==
PROVIDERS: PCP Emergency Medicine; Visit Provider Emergency Medicine
DX: S86.111A Strain of other muscle(s) and tendon(s) of posterior muscle group at lower leg level, right leg, initial encounter (principal)
CPT/HCPCS: 73718

== ENCOUNTER 2023-06-29 22:42 | Emergency (ER) | payer OTHER, SELFPAY ==
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
[2023-06-29 22:45] VITALS: BP 137/96; PULSE 122; RESP 20; TEMP 36.4; O2SAT 98
[2023-06-30 02:33] VITALS: BP 174/117; PULSE 96; RESP 18; O2SAT 99
--- NOTE | 2023-06-30 02:34 | ED.WOUNDLAC ---
HPI - Wound/Laceration General Chief Complaint: Wound/Laceration Stated Complaint: laceration left arm Time Seen by Provider: 06/30/23 01:42 Source: patient Mode of arrival: ambulatory Limitations: no limitations History of Present Illness HPI narrative: Right hand dominant male presents with multiple lacerations and puncture wounds after accidentally falling on a prop bed of nails at a wrestling event. Has not taken anything for pain yet. Tetanus is not up to date. No paresthesias but having some limitation in full range of motion of left hand, particularly fingers. Related Data Home Medications Medication Instructions Recorded Confirmed amlodipine 10 mg tablet 10 mg PO DAILY 04/05/20 02/02/21 citalopram 10 mg tablet 10 mg PO DAILY 04/05/20 02/02/21 cyclobenzaprine 10 mg tablet 10 mg PO DAILY 04/05/20 02/02/21 famotidine 20 mg tablet 20 mg PO DAILY 04/05/20 02/02/21 hydrocodone 7.5 mg-acetaminophen 1 tablet PO DAILY 04/05/20 02/02/21 325 mg tablet irbesartan 150 mg tablet 150 mg PO DAILY 04/05/20 02/02/21 lisdexamfetamine 30 mg capsule 30 mg PO DAILY 04/05/20 02/02/21 (Vyvanse) rosuvastatin 20 mg tablet 20 mg PO DAILY 04/05/20 02/02/21 tadalafil 5 mg tablet 5 mg PO DAILY 04/05/20 02/02/21 allopurinol 100 mg tablet tablet 10/09/21 trazodone 50 mg tablet tablet 10/09/21 Allergies Allergy/AdvReac Type Severity Reaction Status Date / Time No Known Allergies Allergy Verified 06/30/23 00:46 [facility] Past Medical History Medical History (Updated 07/01/23 @ 16:33 by Keerthi Da Silva MD) Bloating Chronic diarrhea Colon cancer screening GERD (gastroesophageal reflux disease) Hypertension Irritable bowel syndrome with diarrhea Obesity, morbid, BMI 40.0-49.9 Right hand dominant Surgical History Surgical History Biceps tendon rupture with surgical repair. Social History Social History Smoking status: Never smoker Alcohol use details: Occassional Substance use type: does not use Gender identity (if verbalized by the patient): Male Exam Narrative: GENERAL: Well-appearing, well-nourished, and in no acute distress. HEAD: Normocephalic, atraumatic. EYES: Non injected, non icteric ENT: Nares clear, no rhinorrhea or epistaxis. NECK: Supple. CHEST: Speaking in full sentences. No respiratory distress. HEART: 2+ radial pulses. Brisk capillary refill. . ABDOMEN: Soft, nondistended. Non tender to palpation. Left abdomen has multiple superficial to deep abrasions but with bleeding well controlled. No rigidity or guarding. EXTREMITIES: No edema. Patient unable to fully extend fingers of left hand which are instead held slightly flexed. 2 puncture wounds left hand. Right hand puncture wounds. Left forearm with 4 wounds. Ecchymosis developing distally. Scratches to left wrist. SKIN: Warm, dry. NEURO: Alert and oriented x3. Sensation intact throughout forearms/hands/fingers. PSYCH: Normal mood and affect. Course Vital Signs Vital signs: Vital Signs Temperature 97.6 F 06/29/23 22:45 Pulse Rate 122 H 06/29/23 22:45 Respiratory Rate 20 06/29/23 22:45 Blood Pressure 137/96 H 06/29/23 22:45 Pulse Oximetry 98 06/29/23 22:45 Oxygen Delivery Room Air 06/29/23 22:45 Temperature 97.6 F 06/29/23 22:45 Pulse Rate 96 06/30/23 02:33 Respiratory Rate 18 06/30/23 02:33 Blood Pressure 174/117 H 06/30/23 02:33 Pulse Oximetry 99 06/30/23 02:33 Oxygen Delivery Room Air 06/29/23 22:45 MDM - Wound/Laceration MDM Narrative Medical decision making narrative: Right hand dominant male presents with multiple lacerations and puncture wounds after accidentally falling on a prop bed of nails at a wrestling event. In the ED he is afebriile with VS that show elevated DBP and tachycardia. Patient given pain medication and tdap updated. Wounds are irrigat
[2023-06-30] MEDS: HYDROcodone/acetaminophen (*CRX) 5-325 MG TABLET 1 TAB PO (03:03)
[2023-06-30] MEDS: ACETAMINOPHEN 325 MG TABLET 650 MG PO (03:04)
[2023-06-30] MEDS: TETANUS,DIPHTHERIA,AC PERTUSSIS ADULT (0.5 ML) BOOSTRIX IM (03:05)
== END 2023-06-30 05:38 | disposition home or self-care (01) ==
PROVIDERS: Emergency Provider Student in an Organized Health Care Education/Training Program; PCP Emergency Medicine
DX: S61.432A Puncture wound without foreign body of left hand, initial encounter (principal); S61.431A Puncture wound without foreign body of right hand, initial encounter; S51.832A Puncture wound without foreign body of left forearm, initial encounter; Z23 Encounter for immunization; W01.118A Fall on same level from slipping, tripping and stumbling with subsequent striking against other sharp object, initial encounter; K21.9 Gastro-esophageal reflux disease without esophagitis; I10 Essential (primary) hypertension; K58.0 Irritable bowel syndrome with diarrhea; E66.01 Morbid (severe) obesity due to excess calories; Z68.41 Body mass index [BMI] 40.0-44.9, adult
CPT/HCPCS: 73090; 73130; 90471; 90715; 99284; A9270

== ENCOUNTER 2023-12-26 12:27 | Observation (INO) | payer OTHER, SELFPAY ==
[2023-12-26] VITALS (18 sets, daily range): BP systolic 131–169; BP diastolic 75–113; PULSE 71–89; RESP 12–20; TEMP 36.2–36.8; O2SAT 94–100; BMI 42.3
--- NOTE | ~2023-12-26 | XR_ITS ---
EXAMINATION: XR chest 2V DATE: 12/26/2023 13:54 INDICATION: Chest tightness TECHNIQUE: PA and lateral views of the chest were obtained. COMPARISON: Chest radiograph dated 12/25/2020 FINDINGS: The lungs remain clear with no focal airspace opacities, pulmonary edema, pleural effusion or pneumot horax. The cardiomediastinal silhouette is normal. Visualized bones and soft tissues are unremarkable . IMPRESSION: 1. No acute cardiopulmonary disease. Reviewed, dictated and finalized at location A.
--- NOTE | 2023-12-26 12:34 | ECG_ITS ---
Test Date: 2023-12-26 12:39:04 Measurements Intervals [place] Rate: 74 P: 27 [place]: 176 QRS: 39 QRSD: 95 T: 30 QT: 364 QTc: 404 Interpretive Statements SINUS RHYTHM DELAYED PRECORDIAL R/S TRANSITION BASELINE WANDER- V4-V6 BORDERLINE ECG No previous ECG available for comparison Electronically Signed On 12-26-2023 12:47:04 CDT by Antolin Alvarado D.O.
[2023-12-26] MEDS: ASPIRIN 81 MG CHEWABLE TABLET 324 MG PO (12:45)
[2023-12-26 13:00] LABS: Basophils Percent Auto 0.3 % (0.2-1.2); Eosinophils Absolute Auto 0.1 K/mm3 (0-0.3); Eosinophils Percent Auto 0.8 % (0-4.4); Hematocrit 48.1 % (42.0-52.0); Hemoglobin 16.6 g/dL (14.0-18.0); Immature Granulocyte Absolute 0.03 K/mm3 (0.00-0.031); Immature Granulocyte Percent A 0.4 % (0-0.5); Lymphocytes Percent Auto 37.8 % (18.3-44.2); Mean Corpuscular HGB Conc 34.5 g/dl (32-36); Mean Corpuscular Hemoglobin 28.8 pg (26-34); Mean Corpuscular Volume 83.5 fl (80-100); Mean Platelet Volume 11.9 fl (7.4-10.4); Monocytes Absolute Auto 0.7 K/mm3 (0.1-0.6); Monocytes Percent Auto 8.9 % (2.6-8.5); Neutrophils Percent Auto 51.8 % (45.5-73.1); Platelet Count Result 148 k/mm3 (150-375); Red Blood Count 5.76 M/mm3 (4.6-6.20); Red Cell Distribution Width 12.7 % (11.5-14.5); White Blood Count 7.7 K/mm3 (4.5-10.0)
[2023-12-26 13:12] LABS: INR 0.9
[2023-12-26 13:13] LABS: Partial Thromboplastin Time 24.1 Seconds (22.3-36.8)
[2023-12-26 13:14] LABS: Alanine Aminotransferase 53 U/L (6-50); Albumin Level 4.6 g/dL (3.5-5.1); Alkaline Phosphatase 55 U/L (38-126); Anion Gap 8 mmol/L (4-12); Aspartate Amino Transferase 32 U/L (17-59); Bilirubin,Total 0.8 mg/dL (0.2-1.3); Blood Urea Nitrogen 13 mg/dL (9-20); Calcium 9.3 mg/dL (8.4-10.2); Carbon Dioxide 27 mmol/L (22-30); Chloride 101 mmol/L (98-107); Estimated CRCL calculation 119 ml/min; Estimated Glomerular Filt Rate > 60; Glucose 114 mg/dL (65-110); Lipase 68 U/L (23-300); Sodium 136 mmol/L (137-145)
--- NOTE | 2023-12-26 13:34 | ED.CHESTPAIN ---
HPI - Chest Pain General Chief Complaint: Chest Pain Stated Complaint: chest tightness, headache Time Seen by Provider: 12/26/23 12:57 History of Present Illness HPI narrative: Patient is a 38-year-old male who presents ER with concerns for chest tightness. Reports over last week he has been feeling but on well as had mild frontal headache. No fevers or chills or sweats. No sinus congestion sore throat or productive cough. He then felt some tightness in central chest that has been intermittent. It will last 20 minutes at a time. He can see his muscles fasciculation at times in the left pectoralis muscle. No radiation to the shoulder down the arm. No radiation to the neck or jaw. No history of heart disease. Cannot identify any aggravating or alleviating factors. Reports he is aware that he is overweight and has hypertension and has had some developing anxiety that he may end up having heart attack from this. He does have a PCP. He has not had a stress test. Related Data Home Medications Medication Instructions Recorded Confirmed amlodipine 10 mg tablet 10 mg PO DAILY 04/05/20 12/26/23 famotidine 20 mg tablet 20 mg PO DAILY 04/05/20 12/26/23 hydrocodone 7.5 mg-acetaminophen 1 tablet PO DAILY 04/05/20 12/26/23 325 mg tablet irbesartan 150 mg tablet 150 mg PO DAILY 04/05/20 12/26/23 rosuvastatin 20 mg tablet 20 mg PO DAILY 04/05/20 12/26/23 allopurinol 100 mg tablet 1 tablet PO DAILY 10/09/21 12/26/23 testosterone cypionate 100 mg/mL 100 mg IM WEEKLY 12/26/23 12/26/23 intramuscular oil Allergies Allergy/AdvReac Type Severity Reaction Status Date / Time No Known Allergies Allergy Verified 12/26/23 12:45 Review of Systems Review of Systems: All systems reviewed & are unremarkable except as noted in HPI and below Constitutional: Constitutional: Reports no additional constitutional complaints Cardiovascular: Cardiovascular: Reports chest pain, Denies rapid heart rate, Denies radiating jaw, neck or arm pain and Denies slow heart rate Respiratory: Respiratory: Reports no additional respiratory complaints Gastrointestinal: Gastrointestinal: Reports no additional gastrointestinal complaints Musculoskeletal: Musculoskeletal: Denies arthralgias, Denies joint swelling and Reports muscle cramps PMFSH Past Medical History Medical History Arthritis GERD (gastroesophageal reflux disease) Gout HLD (hyperlipidemia) Hypertension Irritable bowel syndrome with diarrhea Surgical History Surgical History Biceps tendon rupture with surgical repair. Family History Family History Grandparent Hx of CABG Cancer of bladder Cerebrovascular accident Diabetes mellitus Heart attack Social History Social History Smoking status: Never smoker Alcohol intake: never Alcohol use details: Occassional Substance use: never Substance use type: does not use Do You Feel Safe in your Home?: Yes Lack of Transportation: No Lack of Food: Never True Current Housing: I Have Housing Concerned About Future Housing: No Difficulty Paying Gas/Electric Bills: No Difficulty Paying for Meds: No Currently Unemployed: YES Education: Associate Degree Difficulty w/ Childcare or Family Care: No Gender identity (if verbalized by the patient): Male Spiritual care concerns: No Exam Narrative: GENERAL: Well-appearing, morbidly obese, and in no acute distress. HEAD: Normocephalic, atraumatic. ENT: Mucous membranes moist. CHEST: Clear to auscultation. No respiratory distress. HEART: Regular rate and rhythm. Normal peripheral pulses. ABDOMEN: Soft, nontender, nondistended. EXTREMITIES: Normal range of motion. No edema. SKIN: Warm, dry, no rash. NEURO: Alert and oriented x3. PSYCH: No
[2023-12-26] MEDS: KETOROLAC 30 MG/ML VIAL (*BKC) IV PUSH (13:36)
[2023-12-26 13:39] LABS: Troponin I 0.081 ng/mL (0.000-0.034)
[2023-12-26] MEDS: HEPARIN SODIUM 5,000 UNITS/ML VIAL 4000 UNITS IV PUSH ×2 (14:59→22:03)
--- NOTE | 2023-12-26 15:10 | ECG_ITS ---
Test Date: 2023-12-26 15:12:59 Measurements Intervals [place] Rate: 73 P: 34 [place]: 199 QRS: 33 QRSD: 106 T: 29 QT: 377 QTc: 417 Interpretive Statements SINUS RHYTHM DELAYED PRECORDIAL R/S TRANSITION BASELINE ARTIFACT- I, II, III, AVR, AVF BORDERLINE ECG Compared to ECG 12/26/2023 12:39:04 No significant changes Electronically Signed On 12-26-2023 15:33:32 CDT by nAtolin Alvarado D.O.
[2023-12-26] MEDS: HEPARIN SOD/D5W 100 UNITS/ML 25,000 UNITS/250 ML BAG 10 UNITS IV CONT (15:15)
[2023-12-26 16:47] LABS: Troponin I 0.151 ng/mL (0.000-0.034)
--- NOTE | 2023-12-26 17:02 | PC.NURSE ---
Report taken from ED nurseMonse.
--- NOTE | 2023-12-26 18:19 | ADMGEN ---
///This patient, Adrienne Navarrete Jr., was admitted to IMU Room 211-01 on 12/26/23 at 1716. Patient/family oriented to hospital policies and general routines including at ID bracelet, bed and alarms, visiting hours, pain management, procedures, bathroom and other care routines, personal items, smoking policy, room service/diet, and visiting hours. Information on how to activate the Rapid Response Team has been discussed. Patient/Family are encouraged to report perceived risks to care and to ask questions if they do not understand what they are told or what they should do.
--- NOTE | 2023-12-26 19:45 | PM.IMHP ---
H&P: HPI History of Present Illness Date/Time: 12/26/23 19:45 Chief Complaint: Chest Tightness Narrative: 38 y/o M presents here with chest tightness with PMH of HTN, HLD, GERD, arthritis, and gout. The patient presents here from home for further evaluation of intermittent chest tightness. He reports onset of midsternal chest tightness starting on Sunday, 12/22. He describes the chest tightness as pressure/squeeze, nonradiating, intermittent, no aggravating or alleviating factors. Accompanied by shortness of breath. Episodes of chest discomfort lasting approximately 20 minutes, occurring at rest, and would resolve without intervention. Denies accompanying dizziness, nausea, diaphoresis, jaw pain/extremity pain, palpitations/tachycardia. The patient denies any cardiac history beyond hypertension. He is currently/not currently on medications for HTN. He reports family history of cardiac disease (uncle, both maternal/fraternal grandpas) and one uncle/moms dad in their 50s due to VT. Patient also reports onset of a frontal headache today. Headache is described as mild, frontal, constant, and has since resolved. No associated cough, rhinorrhea, or congestion. Initial VS at presentation: 98? F, HR 72, RR 18, 168/107, and 96% on RA. ED workup showed: No leukocytosis, no anemia, normal coags, no significant electrolyte derangements, creatinine 1.0 and GFR >60, glucose 114. CXR showed no acute cardiopulmonary disease. Troponin: 0.081-> 0.151. Review of Systems Review of Systems: All systems reviewed & are unremarkable except as noted in HPI and below [facility] Past Medical History Medical History Arthritis GERD (gastroesophageal reflux disease) Gout HLD (hyperlipidemia) Hypertension Irritable bowel syndrome with diarrhea Surgical History Surgical History Biceps tendon rupture with surgical repair. Family History Family History Grandparent Hx of CABG Cancer of bladder Cerebrovascular accident Diabetes mellitus Heart attack Social History Social History Smoking status: Never smoker Alcohol intake: never Alcohol use details: Occassional Substance use: never Substance use type: does not use Do You Feel Safe in your Home?: Yes Lack of Transportation: No Lack of Food: Never True Current Housing: I Have Housing Concerned About Future Housing: No Difficulty Paying Gas/Electric Bills: No Difficulty Paying for Meds: No Currently Unemployed: YES Education: Associate Degree Difficulty w/ Childcare or Family Care: No Gender identity (if verbalized by the patient): Male Spiritual care concerns: No Meds Home Medications and Allergies Home Medications Medication Instructions Recorded Confirmed Type amlodipine 10 mg tablet 10 mg PO DAILY 04/05/20 12/26/23 History famotidine 20 mg tablet 20 mg PO DAILY 04/05/20 12/26/23 History hydrocodone 7.5 mg-acetaminophen 1 tablet PO DAILY 04/05/20 12/26/23 History 325 mg tablet irbesartan 150 mg tablet 150 mg PO DAILY 04/05/20 12/26/23 History rosuvastatin 20 mg tablet 20 mg PO DAILY 04/05/20 12/26/23 History allopurinol 100 mg tablet 1 tablet PO DAILY 10/09/21 12/26/23 History testosterone cypionate 100 mg/mL 100 mg IM WEEKLY 12/26/23 12/26/23 History intramuscular oil Allergies Allergy/AdvReac Type Severity Reaction Status Date / Time No Known Allergies Allergy Verified 12/26/23 12:45 Vital Signs Vital Signs - 24 hr 12/26/23 12:37 12/26/23 12:43 12/26/23 12:43 Temperature 98 F Pulse Rate 72 72 76 Respiratory Rate 18 16 Blood Pressure 168/107 H 148/97 H Pulse Oximetry 96 100 Oxygen Delivery Room Air 12/26/23 12:50 12/26/23 13:37 12/26/23 14:38 Temperature Pulse Rate 72 75
[2023-12-26 20:18] LABS: Troponin I 0.128 ng/mL (0.000-0.034)
[2023-12-26] MEDS: hydrALAZINE HCL 20 MG/ML VIAL 10 MG IV PUSH (21:28)
[2023-12-26] MEDS: ALPRAZolam (*CRX) 0.125 MG TABLET PO (21:28)
[2023-12-26 21:57] LABS: Partial Thromboplastin Time 27.6 Seconds (22.3-36.8)
[2023-12-27] VITALS (26 sets, daily range): BP systolic 128–164; BP diastolic 83–114; PULSE 71–89; RESP 16–20; TEMP 36.4–37.1; O2SAT 94–98
--- NOTE | 2023-12-27 | ECHO_ITS ---
Patient Info Name: Adrienne Navarrete Age: 38 years : 1985 Gender: Male Ht: 70 in Wt: 294 lbs BSA: 2.63 m2 HR: 80 bpm BP: 148 / 94 mmHg Heart Rhythm: Sinus Rhythm Technical Quality: Fair Exam Date: 12/27/2023 4:11 PM Exam Location: Echo Lab Patient Status: Outpatient Admit Date: 12/26/2023 Staff Ordering Physician: Tony Norwood MD ([email or web address]/[email or web address]) Massage Therapist: Jennifer Camarillo BROOKLYNN Attending Provider: Spencer Gamboa MD Exam Type: CA echo dop color flow w con Study Info Indications I21.4 - Non-ST elevation (NSTEMI) myocardial infarction Complete two-dimensional, color flow and Doppler transthoracic echocardiogram is performed with contrast to opacify the left ventricle and to improve the deliniation of the left ventricle endocardial borders. Contrast/Agitated Saline Contrast/Ag. Saline: Definity Amount: 2.00 ml Existing IV Access: Yes IV Access Condition: patent with no signs of infiltration Summary 1. Left ventricular chamber dimension is normal. 2. Left ventricular systolic function is normal, estimated at 60-65%. 3. There is mildly increased left ventricular wall thickness. 4. The left ventricular diastolic function is grade I diastolic dysfunction. 5. Right ventricular systolic function is normal. 6. No significant valvular disease. Left Ventricle Left ventricular chamber dimension is normal. Left ventricular systolic function is normal, estimated at 60-65%. There is mildly increased left ventricular wall thickness. The left ventricular diastolic function is grade I diastolic dysfunction. Right Ventricle Right ventricular chamber dimension is normal. Right ventricular systolic function is normal. Left Atria Left atrial chamber dimension is normal. Right Atria Right atrial chamber dimension is normal. Atrial Septum Intact interatrial septum visualized by color flow imaging. Aortic Valve The aortic valve is trileaflet. There is mild aortic valve sclerosis. There is no aortic valve stenosis. There is no aortic valve regurgitation. Pulmonic Valve The pulmonic valve is not well visualized. There is no pulmonic regurgitation. Mitral Valve There is trace mitral valve regurgitation. Tricuspid Valve There is trace tricuspid valve regurgitation. Pericardium/Pleural The pericardium appears epicardial fat pad. There is no pericardial effusion. Inferior Vena Cava Inferior vena cava is not well visualized. Aorta The aortic root size at the sinus of Valsalva is normal. Left Ventricular Outflow Tract Name Value Normal LVOT 2D LVOT Diameter 2.07 cm LVOT Doppler LVOT Peak Gradient 3 mmHg LVOT Mean Gradient 1 mmHg LVOT VTI 17.18 cm LVOT VTI/AV VTI Ratio 0.72 LVOT Stroke Volume 57.58 ml LVOT CO 3.59 l/min LVOT CI 1.37 L/min/m2 Pulmonic Valve Name Value Normal
[2023-12-27 04:02] LABS: Basophils Percent Auto 0.2 % (0.2-1.2); Eosinophils Absolute Auto 0.1 K/mm3 (0-0.3); Eosinophils Percent Auto 1.4 % (0-4.4); Hematocrit 46.7 % (42.0-52.0); Hemoglobin 15.6 g/dL (14.0-18.0); Immature Granulocyte Absolute 0.03 K/mm3 (0.00-0.031); Immature Granulocyte Percent A 0.4 % (0-0.5); Lymphocytes Absolute Auto 3.79 K/mm3 (0.9-3.2); Lymphocytes Percent Auto 47.2 % (18.3-44.2); Mean Corpuscular HGB Conc 33.4 g/dl (32-36); Mean Corpuscular Hemoglobin 28.3 pg (26-34); Mean Corpuscular Volume 84.8 fl (80-100); Mean Platelet Volume 11.7 fl (7.4-10.4); Monocytes Absolute Auto 0.7 K/mm3 (0.1-0.6); Monocytes Percent Auto 8.1 % (2.6-8.5); Neutrophils Absolute Auto 3.4 K/mm3 (1.3-6.7); Neutrophils Percent Auto 42.7 % (45.5-73.1); Platelet Count Result 150 k/mm3 (150-375); Red Blood Count 5.51 M/mm3 (4.6-6.20); Red Cell Distribution Width 12.8 % (11.5-14.5)
[2023-12-27 04:12] LABS: Alanine Aminotransferase 49 U/L (6-50); Albumin Level 4.2 g/dL (3.5-5.1); Alkaline Phosphatase 54 U/L (38-126); Anion Gap 10 mmol/L (4-12); Aspartate Amino Transferase 30 U/L (17-59); Bilirubin,Total 0.7 mg/dL (0.2-1.3); Blood Urea Nitrogen 15 mg/dL (9-20); Carbon Dioxide 25 mmol/L (22-30); Chloride 102 mmol/L (98-107); Cholesterol 182 mg/dL (0-200); Estimated CRCL calculation 121 ml/min; Estimated Glomerular Filt Rate > 60; Glucose 96 mg/dL (65-110); HDL Direct 43 mg/dL; Potassium 3.9 mmol/L (3.4-5.0); Sodium 137 mmol/L (137-145); Triglycerides 237 mg/dL (<150)
[2023-12-27 04:15] LABS: Partial Thromboplastin Time 39.5 Seconds (22.3-36.8)
[2023-12-27 04:23] LABS: LDL Cholesterol Direct 99 mg/dL
[2023-12-27] MEDS: HEPARIN SODIUM 5,000 UNITS/ML VIAL 4000 UNITS IV PUSH (04:28)
[2023-12-27] MEDS: ROSUVASTATIN 20 MG TABLET PO (08:03)
[2023-12-27] MEDS: FAMOTIDINE 20 MG TABLET PO (08:03)
[2023-12-27] MEDS: IRBESARTAN 150 MG TABLET PO (08:04)
[2023-12-27] MEDS: amLODIPine BESYLATE 10 MG TABLET PO (08:04)
[2023-12-27] MEDS: allopurinoL 100 MG TABLET PO (08:04)
[2023-12-27] MEDS: ASPIRIN 81 MG CHEWABLE TABLET PO (08:15)
--- NOTE | 2023-12-27 09:41 | PM.CNCAR ---
Assessment and Plan Assessment and plan (1) Non-ST elevated myocardial infarction: Code(s): I21.4 - Non-ST elevation (NSTEMI) myocardial infarction Status: Acute (2) Hypertension: Qualifiers: Hypertension type: primary hypertension Qualified Code(s): I10 - Essential (primary) hypertension Code(s): I10 - Essential (primary) hypertension Status: Acute (3) HLD (hyperlipidemia): Code(s): E78.5 - Hyperlipidemia, unspecified Status: Acute Plan 38 yo man with HTN and HLD presented with chest pain whose clinical presentation is consistent with NSTEMI NSTEMI - continue heparin drip with ptt goal aligned with ACS protocol - continue asa 81mg po daily and rosuvastatin 20mg qhs - will need a TTE HTN - can start coreg 12.5mg PO BID for goal SBP <120 HLD - will likely need increase of rosuvastatin to 40mg qhs if PCI is performed to keep LDL < 55 History of Present Illness History of Present Illness Consult date/time: 12/27/23 09:41 Requesting physician: Kelin Ojeda APRN Consult reason: chest pain Reason For Visit: nstemi Narrative: 38 yo man with HTN and HLD presented with chest pain. Substernal occur over the weekend and is now persisting. Denies dyspnea, orthopnea, and recent syncopal episodes. No bleeding episodes recently. 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 Family History Family History Grandparent Hx of CABG Cancer of bladder Cerebrovascular accident Diabetes mellitus Heart attack Social History Social History Smoking status: Never smoker Alcohol intake: never Alcohol use details: Occassional Substance use: never Substance use type: does not use Do You Feel Safe in your Home?: Yes Lack of Transportation: No Lack of Food: Never True Current Housing: I Have Housing Concerned About Future Housing: No Difficulty Paying Gas/Electric Bills: No Difficulty Paying for Meds: No Currently Unemployed: YES Education: Associate Degree Difficulty w/ Childcare or Family Care: No Gender identity (if verbalized by the patient): Male Spiritual care concerns: No Meds Home Medications and Allergies Home Medications Medication Instructions Recorded Confirmed Type amlodipine 10 mg tablet 10 mg PO DAILY 04/05/20 12/26/23 History famotidine 20 mg tablet 20 mg PO DAILY 04/05/20 12/26/23 History hydrocodone 7.5 mg-acetaminophen 1 tablet PO DAILY 04/05/20 12/26/23 History 325 mg tablet irbesartan 150 mg tablet 150 mg PO DAILY 04/05/20 12/26/23 History rosuvastatin 20 mg tablet 20 mg PO DAILY 04/05/20 12/26/23 History allopurinol 100 mg tablet 1 tablet PO DAILY 10/09/21 12/26/23 History testosterone cypionate 100 mg/mL 100 mg IM WEEKLY 12/26/23 12/26/23 History intramuscular oil Allergies Allergy/AdvReac Type Severity Reaction Status Date / Time No Known Allergies Allergy Verified 12/26/23 12:45 Vital Signs Vital Signs - 24 hr 12/26/23 12:37 12/26/23 12:43 12/26/23 12:43 Temperature 36.6 C Pulse Rate 72 72 76 Respiratory Rate 18 16 Blood Pressure 168/107 H 148/97 H Pulse Oximetry 96 100 Oxygen Delivery Room Air 12/26/23 12:50 12/26/23 13:37 12/26/23 14:38 Temperature Pulse Rate 72 75 Respiratory Rate 18 16 Blood Pressure 150/104 H 162/108 H Pulse Oximetry
--- NOTE | 2023-12-27 09:47 | WPDMODSED ---
Moderate Sedation Note-Pt Data Patient Data Allergies Allergy/AdvReac Type Severity Reaction Status Date / Time No Known Allergies Allergy Verified 12/26/23 12:45 Home Medications Medication Instructions Recorded Confirmed Type amlodipine 10 mg tablet 10 mg PO DAILY 04/05/20 12/26/23 History famotidine 20 mg tablet 20 mg PO DAILY 04/05/20 12/26/23 History hydrocodone 7.5 mg-acetaminophen 1 tablet PO DAILY 04/05/20 12/26/23 History 325 mg tablet irbesartan 150 mg tablet 150 mg PO DAILY 04/05/20 12/26/23 History rosuvastatin 20 mg tablet 20 mg PO DAILY 04/05/20 12/26/23 History allopurinol 100 mg tablet 1 tablet PO DAILY 10/09/21 12/26/23 History testosterone cypionate 100 mg/mL 100 mg IM WEEKLY 12/26/23 12/26/23 History intramuscular oil Current Medications: Active Medications Acetaminophen (Acetaminophen 325 Mg Tablet) 650 mg PO Q4H PRN PRN Reason: Mild Pain (1-3) or Fever Hydrocodone Bitart/Acetaminophen (Hydrocodone/Acetaminophen (*Crx) 5-325 Mg Tablet) 1 tab PO Q4H PRN PRN Reason: Pain Rated 4-6 Allopurinol (Allopurinol 100 Mg Tablet) 100 mg PO DAILY [facility] Last Admin: 12/27/23 08:04 Dose: 100 mg Amlodipine Besylate (Amlodipine Besylate 10 Mg Tablet) 10 mg PO DAILY [facility] Last Admin: 12/27/23 08:04 Dose: 10 mg Aspirin (Aspirin 81 Mg Chewable Tablet) 81 mg PO DAILY@0800 [facility] Last Admin: 12/27/23 08:15 Dose: 81 mg Famotidine (Famotidine 20 Mg Tablet) 20 mg PO DAILY [facility] Last Admin: 12/27/23 08:03 Dose: 20 mg Heparin Sodium (Porcine) (Heparin Sodium 5,000 Units/Ml Vial) 4,000 units IV PUSH PRN PRN PRN Reason: aPTT less than 55 seconds Last Admin: 12/27/23 04:28 Dose: 4,000 units Heparin Sodium (Porcine) (Heparin Sodium 5,000 Units/Ml Vial) 4,000 units IV PUSH PRN PRN PRN Reason: aPTT 55 - 70 seconds Hydralazine HCl (Hydralazine Hcl 20 Mg/Ml Vial) 10 mg IV PUSH Q8H PRN PRN Reason: BP greater than 180/90 Last Admin: 12/26/23 21:28 Dose: 10 mg Heparin Sodium/Dextrose (Heparin Sodium/D5w 100 Units/Ml) 25,000 units in 250 mls @ 18 mls/hr IV CONT .[id number] [facility]; Protocol Last Titration: 12/27/23 04:27 Dose: 1,800 units/hr, 18 mls/hr Irbesartan (Irbesartan 150 Mg Tablet) 150 mg PO DAILY [facility] Last Admin: 12/27/23 08:04 Dose: 150 mg Morphine Sulfate (Morphine Sulfate (*Crx) 4 Mg/Ml Inj) 4 mg IV PUSH Q2H PRN PRN Reason: Pain Rated 7-10 Nitroglycerin (Nitroglycerin Sl 0.4 Mg Tablet) 0.4 mg SUBLINGUAL Q5MIN PRN PRN Reason: Chest Pain Ondansetron HCl (Ondansetron Inj 4 Mg/2 Ml Vial) 4 mg IV PUSH Q4H PRN PRN Reason: Nausea Perflutren Lipid Microsphere (Perflutren Lipid Microspheres 1.5 Ml Vial Diluted To 10 Ml Total Volume) 0 ml IV PUSH ONCE PRN; Protocol PRN Reason: adequate visualization Stop: 12/30/23 09:46 Rosuvastatin Calcium (Rosuvastatin 20 Mg Tablet) 20 mg PO DAILY [facility] Last Admin: 12/27/23 08:03 Dose: 20 mg Sedation/Anesthesia: No previous sedation/anesthesia problems (including family history). [facility] Past Medical History Medical History (Updated 12/27/23 @ 09:47 by Tony Norwood MD) Arthritis GERD (gastroesophageal reflux disease) Gout HLD (hyperlipidemia) Hypertension Irritable bowel syndrome with diarrhea Surgical History Surgical History Biceps tendon rupture with surgical repair. Family History Family History Grandparent Hx of CABG Cancer of bladder Cerebrovascular accident Diabetes mellitus Heart attack Social History Social History Smoking status: Never smoker Alcohol intake: never Alcohol use details: Occassional Substance use: never Substance use type: does not use Do You Feel Safe in your Home?: Yes Lack of Transportation: No Lack of Food: Never True Current Housing: I Have Housing Concerned About Future Housing: No Difficulty Paying Gas/Elec
--- NOTE | 2023-12-27 09:49 | P.PCNCC_ITS ---
Cardiac Cath Procedure Note Date of procedure:: 12/27/23 Performing physician:: CATHETERIZATION LABORATORY REPORT Procedure Date:12/27/2023 Referring Physician: Dr. Gamboa Anesthesia: Versed and Fentanyl were ordered and given in my presence at 1046, procedure ended at 1102. Supervision of nurse monitored moderate sedation with Versed and Fentanyl was provided for 16 minutes. Pre-op Diagnosis: NSTEMI Post-op Diagnosis: NSTEMI Procedure(s): Left heart catheterization with coronary angiography Access Site: Right radial artery Brief History and Clinical Indications: 38 yo man with HTN and HLD presented with chest pain whose clinical presentation is consistent with NSTEMI here for left heart catheterization. All risks, benefits and alternatives to left heart catheterization with or without percutaneous coronary intervention was discussed at length with the patient. Risk of complications including but not limited to bleeding, infection, arrhythmia, stroke, worsening kidney function, blood loss, groin hematoma, limb loss, emergency coronary artery bypass grafting, and even were discussed with the patient and all questions were answered. The patient understood and wished to proceed. Time out called, patient name, date of , medical record number, allergies, procedure performed, identify Air Deodorizer Servicer, patient and staff member concurred with accurate data, procedure carried on. Findings: LEFT HEART CATHETERIZATION FINDINGS: 1. Left main: The left main coronary artery is widely patent without any significant obstructive disease. 2. Left anterior descending: The LAD and the diagonal branches have mild luminal irregularities without any significant obstructive angiographic disease. 3. Left circumflex: The left circumflex artery is a nondominant vessel. It gives off 3 OM branches that have luminal irregularities without any significant obstructive angiographic disease. 4. Right coronary artery: The RCA is a large dominant vessel with mild luminal irregularities. 5. Left ventricle: A. End-diastolic pressure 11 mmHg. B. LV gram deferred. C. No significant gradient across aortic valve on catheter pullback. Description of Procedure: Informed consent signed and placed in the chart. Patient transferred to flue dust laborer room. Prepped and draped in usual sterile fashion. 2% lidocaine injected subcutaneously in right wrist area. 22-gauge venipuncture catheter used to access the right radial artery with the Seldinger technique. 6- FR slender sheath placed in right radial artery. 200 mcg Nitroglycerine, 2.5mg Verapamil, and 5000U heparin was given intraarterial through the sheath. J-wire advanced under fluoroscopy 5Fr TIG diagnostic catheter crossed aortic valve to obtain LVEDP, LV angiogram deferred. 5Fr TIG diagnostic catheter engaged Left Main Coronary Artery. 5Fr JR4 diagnostic catheter engaged Right Coronary Artery Multiple orthogonal angiogram obtained and reviewed Hemostasis was achieved by application of TR band. Assessment: Nonobstructive CAD Post Operative Condition: Stable No significant blood loss Disposition: Floor Plan: Obtain TTE and blood pressure management Can stop heparin drip. No further need for ASA 81mg. Rosuvastatin can remain at 20mg qhs Tony Norwood Interventional Cardiology
--- NOTE | 2023-12-27 10:22 | PC.NURSE ---
Pt to vat house laborer via stretcher. at bedside and aware of transfer. Heparin drip paused for procedure.
[2023-12-27] MEDS: SODIUM CHLORIDE 0.9% IV 1,000 ML 125 ML IV CONT (12:00)
[2023-12-27] MEDS: ACETAMINOPHEN 325 MG TABLET 650 MG PO ×2 (13:05→17:45)
--- NOTE | 2023-12-27 15:15 | PC.NURSE ---
Pt returned from laborer construction or leak gang via wheelchair. No issues noted. Site C/D/I
[2023-12-27] MEDS: PERFLUTREN LIPID MICROSPHERES 1.5 ML VIAL DILUTED TO 10 ML TOTAL VOLUME IV PUSH (16:40)
--- NOTE | 2023-12-27 17:16 | PM.DS ---
DS: Admitting Diagnosis Discharge Date 12/27/23 Admitting Diagnosis Chest pain DS: Discharge Diagnosis Discharge Diagnosis (1) Chest pain: Qualifiers: Chest pain type: other chest pain Qualified Code(s): R07.89 - Other chest pain Code(s): R07.9 - Chest pain, unspecified Status: Acute (2) Hypertension: Qualifiers: Hypertension type: primary hypertension Qualified Code(s): I10 - Essential (primary) hypertension Code(s): I10 - Essential (primary) hypertension Status: Acute DS: Summary Hospital Course Reason for hospitalization: 38yo male with HTN here for chest pain. Please see H&P for details. Hospital Course: In the ED lab work was unrevealing. CXR showed no acute cardiopulmonary disease. Troponin peaked at 0.151. EKG showing normal sinus rhythm with delayed precordial transition. LDL 99. BP was 168/107. ASA 324 given. Cardiology consulted. He was started on heparin gtt. LHC showing mild luminal irregularities without any significant obstructive angiographic disease. Please see report for details. Echo ordered and results pending. Medications adjusted and BP improved. He does miss medications at home (2-3x/week); he was educated about the benefits of medication compliance. Patient overall did well discharged 12/27/2023. Status at Discharge Cognitive/behavioral status at discharge: stable Time Spent with Patient Time attestation: Total time spent providing and/or coordinating discharge services: 35 minutes Time spent: Greater than 30 minutes Exam Narrative: AF 98.8 152/83 83 20 94% ra Gen - NARD Chest - CTA bilaterally, nml RR CV - RRR S1/S2. Tele showing no significant dysrhythmias Abd - Soft, NT/ND, Positive BS Ext - No pedal edema Psych - Nml mood and affect Skin - Warm and dry DS: Data Data Completed and Pending Labs on day of discharge: Labs from last 24 hours 12/27/23 12/26/23 12/26/23 03:54 21:35 19:34 WBC 8.0 RBC 5.51 Hgb 15.6 Hct 46.7 MCV 84.8 MCH 28.3 MCHC 33.4 RDW 12.8 Plt Count 150 MPV 11.7 H Immature Gran % (Auto) 0.4 Neut % (Auto) 42.7 L Lymph % (Auto) 47.2 H Kidder % (Auto) 8.1 Eos % (Auto) 1.4 Baso % (Auto) 0.2 Lymph # (Auto) 3.79 H Kidder # (Auto) 0.7 H Eos # (Auto) 0.1 Baso # (Auto) 0.0 Abs Immat Gran (auto) 0.03 Absolute Neuts (auto) 3.4 Absolute Nucleated RBC 0.000 Nucleated RBC % 0.0 APTT 39.5 H 27.6 Sodium 137 Potassium 3.9 Chloride 102 Carbon Dioxide 25 Anion Gap 10 BUN 15 Creatinine 1.00 Estim Creat Clear Calc 121 Estimated GFR > 60 Glucose 96 Calcium 9.0 Total Bilirubin 0.7 AST 30 ALT 49 Alkaline Phosphatase 54 Troponin I 0.128 H* Total Protein 7.0 Albumin 4.2 Triglycerides 237 H Cholesterol 182 LDL Cholesterol Direct 99 HDL Direct 43 Discharge Plan Discharge Attending physician on discharge: Spencer Gamboa Consulting providers: Sami Hernandez Discharging Clinician: Spencer Gamboa Anticipated Discharge Date/Time: 12/27/23 17:24 Patient Disposition: Home, Self-Care Activity: other - see discharge instructions Diet: heart healthy Discharge Instructions: [facility] [address] [facility] [address] [place], [place] [id number] DISCHARGE INSTRUCTIONS - POST CARDIAC CATH Activity Restricti
--- NOTE | 2023-12-28 12:08 | IVDEFINITY ---
Prior to administration of IV Definity the patient was educated on the risks and benefits of the imaging enhancing agent including potential adverse side effects. The patient verbalized understanding. Allergies were verified. No exclusion criteria were identified and at least one of the following inclusion criteria were met: 1) physician request, 2) patient technically difficult to image (per the [place] [employer] guidelines of two or more segments not discernable within the apical view), or 3) questionable left ventricular function. ?
== END 2023-12-27 18:30 | disposition home or self-care (01) ==
LOC: ANHED 13:47 → ANHIMU 16:14
PROVIDERS: Internal Medicine; Student in an Organized Health Care Education/Training Program; Admitting Provider Internal Medicine; Emergency Provider Emergency Medicine; PCP Emergency Medicine; Visit Provider Internal Medicine
PROC: 4A023N7 Measurement of Cardiac Sampling and Pressure, Left Heart, Percutaneous Approach (ICD-10-PCS; CPT 93452; principal; 2023-12-27 10:00)
DX: I21.4 Non-ST elevation (NSTEMI) myocardial infarction (principal); I10 Essential (primary) hypertension; E78.5 Hyperlipidemia, unspecified; M19.90 Unspecified osteoarthritis, unspecified site; M10.9 Gout, unspecified; K58.0 Irritable bowel syndrome with diarrhea; K21.9 Gastro-esophageal reflux disease without esophagitis; Z82.49 Family history of ischemic heart disease and other diseases of the circulatory system; Z79.899 Other long term (current) drug therapy
CPT/HCPCS: 36415; 71046; 80053; 80061; 83690; 84484; 85025; 85610; 85730; 93005; 93458; 96365; 96366; 96375; 99285; A9270; C1769; C1887; C1894; C8929; G0379; J0360; J1644; J1885; J2250; J2305; J3010; J7030; J7040; Q9957

== ENCOUNTER 2024-01-03 05:32 | Emergency (ER) | payer OTHER, SELFPAY ==
[2024-01-03] VITALS (10 sets, daily range): BP systolic 116–153; BP diastolic 69–105; PULSE 59–73; RESP 12–23; TEMP 36.6; O2SAT 95–100
--- NOTE | ~2024-01-03 | XR_ITS ---
Clinical Indication: Chest pain PA and lateral views of the chest: Comparison: 12/26/2023 Findings: The lungs are clear, without evidence of focal consolidation or pleural effusion. Cardiome diastinal silhouette is within normal limits. Bones and soft tissues are unremarkable. Impression: Normal chest. Reviewed, dictated and finalized at location . Impression: Normal chest.
--- NOTE | 2024-01-03 05:34 | ECG_ITS ---
Test Date: 2024-01-03 05:37:38 Measurements Intervals [place] Rate: 68 P: 33 ME: 182 QRS: 57 QRSD: 96 T: 32 QT: 385 QTc: 412 Interpretive Statements SINUS RHYTHM WITH OCCASIONAL SUPRAVENTRICULAR PREMATURE COMPLEXES Compared to ECG 12/26/2023 15:12:59 No significant changes Electronically Signed On 01-03-2024 12:07:26 CDT by Tony Norwood M.D.
[2024-01-03 05:55] LABS: Basophils Percent Auto 0.4 % (0.2-1.2); Eosinophils Absolute Auto 0.1 K/mm3 (0-0.3); Eosinophils Percent Auto 1.5 % (0-4.4); Hematocrit 48.7 % (42.0-52.0); Hemoglobin 16.4 g/dL (14.0-18.0); Immature Granulocyte Absolute 0.02 K/mm3 (0.00-0.031); Immature Granulocyte Percent A 0.3 % (0-0.5); Lymphocytes Absolute Auto 3.46 K/mm3 (0.9-3.2); Lymphocytes Percent Auto 43.9 % (18.3-44.2); Mean Corpuscular HGB Conc 33.7 g/dl (32-36); Mean Corpuscular Hemoglobin 28.7 pg (26-34); Mean Corpuscular Volume 85.3 fl (80-100); Mean Platelet Volume 11.7 fl (7.4-10.4); Monocytes Absolute Auto 0.8 K/mm3 (0.1-0.6); Monocytes Percent Auto 9.9 % (2.6-8.5); Neutrophils Absolute Auto 3.5 K/mm3 (1.3-6.7); Platelet Count Result 142 k/mm3 (150-375); Red Blood Count 5.71 M/mm3 (4.6-6.20); Red Cell Distribution Width 12.8 % (11.5-14.5); White Blood Count 7.9 K/mm3 (4.5-10.0)
[2024-01-03 06:06] LABS: Prothrombin Time 13.2 Seconds (11.1-14.7)
[2024-01-03 06:07] LABS: Alanine Aminotransferase 58 U/L (6-50); Albumin Level 4.7 g/dL (3.5-5.1); Alkaline Phosphatase 52 U/L (38-126); Anion Gap 10 mmol/L (4-12); Aspartate Amino Transferase 30 U/L (17-59); Bilirubin,Total 0.8 mg/dL (0.2-1.3); Blood Urea Nitrogen 19 mg/dL (9-20); Calcium 9.2 mg/dL (8.4-10.2); Carbon Dioxide 26 mmol/L (22-30); Chloride 101 mmol/L (98-107); Estimated CRCL calculation 132 ml/min; Estimated Glomerular Filt Rate > 60; Glucose 100 mg/dL (65-110); Lipase 102 U/L (23-300); Partial Thromboplastin Time 26.1 Seconds (22.3-36.8); Potassium 4.3 mmol/L (3.4-5.0); Sodium 137 mmol/L (137-145)
[2024-01-03 06:18] LABS: Troponin I < 0.012 ng/mL (0.000-0.034)
--- NOTE | 2024-01-03 06:34 | ED.GENADULT ---
HPI - General Adult General Chief complaint: Chest Pain <Spencer Fields MD - Last Filed: 01/03/24 07:03> Stated complaint: chest pain <Spencer Fields MD - Last Filed: 01/03/24 07:03> Time Seen by Provider: 01/03/24 06:26 <Spencer Fields MD - Last Filed: 01/03/24 07:03> History of Present Illness HPI narrative: Patient is a 38-year-old gentleman presents emergency department with chief complaint of chest pain. Patient reports that he was seen in the emergency department about a week ago after he had episode of chest pain patient that time had a elevated troponin was admitted had a cardiac catheterization about require stent placement patient states a heart was started on Coreg and reports that noticed his blood pressures have been still elevated since then patient reports that he woke up this evening she had a heaviness and tightness in his chest as well with a burning sensation. <Spencer Fields MD - Last Filed: 01/03/24 07:03> Related Data Home medications: Home Medications Medication Instructions Recorded Confirmed amlodipine 10 mg tablet 10 mg PO DAILY 04/05/20 12/26/23 famotidine 20 mg tablet 20 mg PO DAILY 04/05/20 12/26/23 hydrocodone 7.5 mg-acetaminophen 1 tablet PO DAILY 04/05/20 12/26/23 325 mg tablet irbesartan 150 mg tablet 150 mg PO DAILY 04/05/20 12/26/23 rosuvastatin 20 mg tablet 20 mg PO DAILY 04/05/20 12/26/23 allopurinol 100 mg tablet 1 tablet PO DAILY 10/09/21 12/26/23 testosterone cypionate 100 mg/mL 100 mg IM WEEKLY 12/26/23 12/26/23 intramuscular oil <Spencer Fields MD - Last Filed: 01/03/24 07:03> Allergies/adverse reactions: Allergies Allergy/AdvReac Type Severity Reaction Status Date / Time No Known Allergies Allergy Verified 01/03/24 05:32 <Spencer Fields MD - Last Filed: 01/03/24 07:03> Review of Systems Review of Systems: A 10 system review of systems was completed on the patient and is negative except for what is stated in the HPI. Nursing and ancillary documentation was reviewed. <Spencer Fields MD - Last Filed: 01/03/24 07:03> PMFSH Past Medical History Medical History: Medical History Arthritis GERD (gastroesophageal reflux disease) Gout HLD (hyperlipidemia) Hypertension Irritable bowel syndrome with diarrhea <Spencer Fields MD - Last Filed: 01/03/24 07:03> Surgical History Surgical History: Surgical History Biceps tendon rupture with surgical repair. <Spencer Fields MD - Last Filed: 01/03/24 07:03> Family History Family History: Family History Grandparent Hx of CABG Cancer of bladder Cerebrovascular accident Diabetes mellitus Heart attack <Spencer Fields MD - Last Filed: 01/03/24 07:03> Social History Social History: Social History Smoking status: Never smoker Alcohol intake: never Alcohol use details: Occassional Substance use: never Substance use type: does not use Do You Feel Safe in your Home?: Yes Lack of Transportation: No Lack of Food: Never True Current Housing: I Have Housing Concerned About Future Housing: No Difficulty Paying Gas/Electric Bills: No Difficulty Paying for Meds: No Currently Unemployed: YES Education: Associate Degree Difficulty w/ Childcare or Family Care: No Gender identity (if verbalized by the patient): Male Spiritual care concerns: No <Spencer Fields MD - Last Filed: 01/03/24 07:03> Exam Narrative: GENERAL: Well-appearing, well-nourished, and in no acute distress. HEAD: Normocephalic, atraumatic. EYES: PERRLA and EOMI. ENT: Nares clear, no rhinorrhea or epistaxis. M
[2024-01-03] MEDS: BELLADONNA ALK/PHENOB ELIX 10 ML, MAG HYDROX/ALUMINUM HYD/SIMETH 30 ML, LIDOCAINE HCL 2... PO (06:39)
[2024-01-03] MEDS: PANTOPRAZOLE SODIUM IV 40 MG VIAL IV PUSH (06:40)
[2024-01-03] MEDS: NITROGLYCERIN SL 0.4 MG TABLET SUBLINGUAL (06:43)
--- NOTE | 2024-01-03 06:43 | PC.NURSE ---
0643: CP 4/10, p 65bpm, 96% spo2, bp 144/105, and RR 13, first nitro SL given 0648: CP 1/10, p 80bpm, 97% spo2, bp 153/82, and RR 12. No more nitro given
[2024-01-03] MEDS: ACETAMINOPHEN 500 MG TABLET 1000 MG PO (06:52)
--- NOTE | 2024-01-03 08:56 | ECG_ITS ---
Test Date: 2024-01-03 09:01:12 Measurements Intervals [place] Rate: 58 P: 38 CA: 199 QRS: 64 QRSD: 97 T: 38 QT: 400 QTc: 395 Interpretive Statements SINUS BRADYCARDIA WITH OCCASIONAL SUPRAVENTRICULAR PREMATURE COMPLEXES Compared to ECG 01/03/2024 05:37:38 Sinus rhythm no longer present Electronically Signed On 01-03-2024 12:09:58 CDT by Tony Norwood M.D.
[2024-01-03 09:23] LABS: Troponin I < 0.012 ng/mL (0.000-0.034)
== END 2024-01-03 09:38 | disposition home or self-care (01) ==
PROVIDERS: Emergency Provider Emergency Medicine; PCP Emergency Medicine
DX: R07.9 Chest pain, unspecified (principal); I10 Essential (primary) hypertension; E78.5 Hyperlipidemia, unspecified; K21.9 Gastro-esophageal reflux disease without esophagitis; K58.0 Irritable bowel syndrome with diarrhea; M19.90 Unspecified osteoarthritis, unspecified site; M10.9 Gout, unspecified; I49.1 Atrial premature depolarization; R00.1 Bradycardia, unspecified
CPT/HCPCS: 36415; 71046; 80053; 83690; 84484; 85025; 85610; 85730; 93005; 96374; 99284; A9270; J2470

== ENCOUNTER 2025-01-09 15:59 | Outpatient (CLI) | payer MEDICAID, SELFPAY ==
--- NOTE | ~2025-01-09 | MR_ITS ---
EXAMINATION: MR lumbar spine wo con DATE: 01/09/2025 16:34 INDICATION: Lumbago. Right-sided sciatica. TECHNIQUE: Magnetic resonance imaging (MRI) of the lumbar spine was performed without intravenous contrast. Sequences included sagittal T2-weighted FSE, sagittal T2-weighted FS FSE, sagittal T1-weighted FSE, and axial T2-weighted FSE. COMPARISON: Lumbar spine MRI 10/28/2012 FINDINGS: There is 5 degrees dextrocurvature of thoracic lumbar spine. There is mild chronic anterior wedging of T12 and L1 vertebral bodies. There is mildly decreased disc height at L3-L4 and L4-L5. The distal spinal cord signal intensity is normal. The conus medullaris is at L1. The following disc levels are specifically discussed: L1-L2: The disc does not extend beyond the endplate margin. There is mild bilateral facet joint osteoarthritis. There is no neural foraminal stenosis. There is no central canal stenosis. L2-L3: The disc does not extend beyond the endplate margin. There is mild bilateral facet joint osteoarthritis. There is no neural foraminal stenosis. There is no central canal stenosis. L3-L4: The disc is bulging and has an annular fissure. There is mild bilateral facet joint osteoarthritis. There is mild bilateral neural foraminal stenosis. There is mild central canal stenosis. L4-L5: The disc is bulging with superimposed central extrusion. There is mild bilateral facet joint osteoarthritis. There is mild bilateral neural foraminal stenosis. There is mild central canal stenosis. L5-S1: The disc does not extend beyond the endplate margin. There is mild bilateral facet joint osteoarthritis. There is no neural foraminal stenosis. There is no central canal stenosis. IMPRESSION: 1. Mild lumbar spondylosis, worsened from 10/22/2012. Reviewed, dictated and finalized at location E.
== END 2025-01-09 16:00 | disposition home or self-care (01) ==
PROVIDERS: PCP Emergency Medicine; Visit Provider Emergency Medicine
DX: M54.41 Lumbago with sciatica, right side (principal); M47.896 Other spondylosis, lumbar region
CPT/HCPCS: 72148

== ENCOUNTER 2025-01-27 10:33 | Emergency (ER) | payer MEDICAID, SELFPAY ==
[2025-01-27 10:39] VITALS: BP 138/87; PULSE 77; RESP 20; TEMP 36.2; O2SAT 98
[2025-01-27 11:22] LABS: Add Urine Microscopic? NO; Appearance Urine Clear (Clear); Glucose Urine UA Negative (Negative); Leukocyte Esterase Ur Negative LEU/UL (Negative); Nitrate Urine Negative (Negative); Specific Grav Ur 1.020 (1.001-1.035)
--- NOTE | 2025-01-27 11:44 | ED.GENADULT ---
HPI - General Adult General Chief complaint: Back Pain/Injury Stated complaint: lower back pain Time Seen by Provider: 01/27/25 10:54 History of Present Illness HPI narrative: 39-year-old male presenting to the emergency department for evaluation for right lower back pain. Patient states the pain is worse with movement. Patient states pain has been ongoing for the past 3 days. Patient has difficulty finding positions for comfort. Patient denies any specific incident of fall or injury. Patient denies any perhaps history of kidney stones. Patient denies any difficulty with urination or burning with urination. Patient denies any radiation the pain down his legs. Related Data Home Medications ?Medication ?Instructions ?Recorded ?Confirmed ?Last Taken ?Type amlodipine 10 mg tablet 10 mg PO DAILY 04/05/20 12/26/23 Unknown History famotidine 20 mg tablet 20 mg PO DAILY 04/05/20 12/26/23 Unknown History hydrocodone 7.5 mg-acetaminophen 1 tablet PO DAILY 04/05/20 12/26/23 Unknown History 325 mg tablet irbesartan 150 mg tablet 150 mg PO DAILY 04/05/20 12/26/23 Unknown History rosuvastatin 20 mg tablet 20 mg PO DAILY 04/05/20 12/26/23 Unknown History allopurinol 100 mg tablet 1 tablet PO DAILY 10/09/21 12/26/23 Unknown History testosterone cypionate 100 mg/mL 100 mg IM WEEKLY 12/26/23 12/26/23 12/19/23 History intramuscular oil Held on 12/27/23. Instructions: Hold - resume when okay with your doctor Allergies Allergy/AdvReac Type Severity Reaction Status Date / Time No Known Allergies Allergy Verified 01/27/25 11:00 Review of Systems Review of Systems: All systems reviewed & are unremarkable except as noted in HPI and below PMFSH Past Medical History Medical History Arthritis GERD (gastroesophageal reflux disease) Gout HLD (hyperlipidemia) Hypertension Irritable bowel syndrome with diarrhea Surgical History Surgical History Biceps tendon rupture with surgical repair. Family History Family History Grandparent Hx of CABG Cancer of bladder Cerebrovascular accident Diabetes mellitus Heart attack Social History Social History Smoking status: Never smoker Alcohol intake: never Alcohol use details: Occassional Substance use: never Substance use type: does not use Do You Feel Safe in your Home?: Yes Lack of Transportation: No Lack of Food: Never True Current Housing: I Have Housing Concerned About Future Housing: No Difficulty Paying Gas/Electric Bills: No Difficulty Paying for Meds: No Currently Unemployed: YES Education: Associate Degree Difficulty w/ Childcare or Family Care: No Gender identity (if verbalized by the patient): Male Spiritual care concerns: No Exam Narrative: APPEARANCE: Well appearing, no pain, no distress, well-nourished. HEAD: normocephalic, atraumatic. EYES: PERRLA/EOMI, conjunctivae clear. NOSE: Normal no drainage EARS:TMS clear with good light reflex. THROAT: Pharynx clear, no exudate. NECK: Supple. No adenopathy, no masses. RESPIRATORY: Airway patent, respirations nonlabored. Clear to auscultation bilaterally, no rales, rhonchi, wheezing. CARDIOVASCULAR: Regular rate and rhythm without murmurs rubs or gallops. ABDOMINAL: Soft, nontender, nondistended, normal bowel sounds MUSCULOSKELETAL: Right lower back tenderness to palpation, no CVA tenderness to palpation NEURO: Alert. Cranial nerves II through XII intact. Grossly intact SKIN: Warm, dry. Normal Color Course Vital Signs Vital signs: Vital Signs Temperature 97.1 F L 01/27/25 10:39 Pulse Rate 77 01/27/25 10:39 Respiratory Rate 20 01/27/25 10:39 Blood Pressure 138/87 01/27/25 10:39 Pulse Oximetry 98 01/27/25 10:39 Oxygen Delivery Room Air 01/27/25 10:39 Temperature 97.1 F L 01/27/25 10:39 Pulse Rate 77 01/27/25 10:39 Respiratory Rate 20 01/27/25 10:39 Blood Pressure 138/87 01/27/25 10:39 Pulse Oximetry 98 01/27/25 10:39 Oxygen Delivery Room Air 01/27/25 10:39 Medical Decision Making MDM Narrative Medical decision making narrative: 39-year-old male presents to the emergency department for evaluation for lower back pain. UA was negative for infection. Patient was neurologically intact. Patient is tender along the right lower paraspinal muscles. Patient denies any specific fall or injury. Patient was treated with [place], Toradol and Flexeril the emergency department. Patient will be discharged home with [place] naproxen and Flexeril. Patient was encouraged of close follow-up with his primary care physician. Differential Diagnosis Differential Diagnosis: Back pain, kidney stone, urinary tract infection, sciatica, back strain Vital Signs Vital Signs: Vital Signs Temperature 97.1 F L 01/27/25 10:39 Pulse Rate 77 01/27/25 10:39 Respiratory Rate 20 01/27/25 10:39 Blood Pressure 138/87 01/27/25 10:39 Pulse Oximetry 98 01/27/25 10:39 Oxygen Delivery Room Air 01/27/25 10:39 Temperature 97.1 F L 01/27/25 10:39 Pulse Rate 77 01/27/25 10:39 Respiratory Rate 20 01/27/25 10:39 Blood Pressure 138/87 01/27/25 10:39 Pulse Oximetry 98 01/27/25 10:39 Oxygen Delivery Room Air 01/27/25 10:39 Lab Data Labs: Lab Results 01/27/25 Range/Units 11:06 Urine Color Yellow (Yellow) Urine Appearance Clear (Clear) Urine pH 7.0 (5.0-9.0) Ur Specific [place] 1.020 (1.001-1.035) Urine Protein Negative (Negative) mg/dL Urine Glucose (UA) Negative (Negative) mg/dL Urine Ketones Negative (Negative) mg/dL Ur Blood (Man) Negative (Negative) Urine Nitrate Negative (Negative) Urine Bilirubin Negative (Negative) Urine Urobilinogen 0.2 (<2.0) mg/dL Leukocyte Esterase Rfl Negative (Negative) SIMA/UL Discharge Plan Discharge Clinical Impression: Back pain Patient Disposition: Home Condition: Stable Instructions: Antibiotic Form, Back Pain (ED) Additional Instructions: Naproxen for pain control. [place] as needed for additional pain control. Flexeril for muscle spasm. Have close follow-up with your primary care physician. Patient Language: Sinhala Prescriptions: New cyclobenzaprine 10 mg tablet 10 mg PO BID PRN (Reason: muscle spasm) Qty: 14 0RF hydrocodone-acetaminophen 5-325 mg tablet 1 tablet PO Q12H PRN (Reason: pain) Qty: 14 0RF naproxen [Naprosyn] 500 mg tablet 500 mg PO BID 7 Days Qty: 14 0RF No Action allopurinol 100 mg tablet 1 tablet PO DAILY famotidine 20 mg tablet 20 mg PO DAILY amlodipine 10 mg tablet 10 mg PO DAILY hydrocodone-acetaminophen 7.5-325 mg tablet 1 tablet PO DAILY irbesartan 150 mg tablet 150 mg PO DAILY rosuvastatin 20 mg tablet 20 mg PO DAILY testosterone cypionate 100 mg/mL oil 100 mg IM WEEKLY Rx Instructions: Wednesdays carvedilol [Coreg] 12.5 mg Tablet 12.5 mg PO Q12HR Qty: 60 1RF Follow-up/Referrals: Diogenes Banda MD [Primary Care Provider, Family Practice]
[2025-01-27] MEDS: HYDROcodone/acetaminophen (*CRX) 5-325 MG TABLET 1 TAB PO (11:55)
[2025-01-27] MEDS: CYCLOBENZAPRINE HCL 10 MG TABLET PO (11:55)
[2025-01-27] MEDS: KETOROLAC 30 MG/ML VIAL (*BKC) IM (11:56)
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
--- OUTSIDE RECORDS SUMMARY | 2025-01-27 12:10 | XMS_ITS | Clinical Summary ---
Author Organization [facility] Address [address] [place] [id number] Care Team Providers Care Assembler Chassis Name Role Phone Solo Barillas MD Primary Care Provider [phone] Social History Tobacco Use Types Packs/Day Years Used Date Smoking Tobacco: Never Assessed Sex and Gender Information Value Date Recorded Sex Assigned at Not on file Legal Sex Male 7:00 PM CDT Gender Identity Not on file Sexual Orientation Not on file Plan of Treatment Health Maintenance Due Date Last Done Comments Annual Physical 06/20/1987 Hepatitis C 2002 DTaP, Tdap and Td Vaccines ( 1 - Tdap) 06/20/2003 Hepatitis B Vaccines (1 of 3 - 19+ 3-dose series) 06/20/2003 HPV Vaccines (1 - 3-dose SCD M series) 06/20/2011 COVID-19 Vaccine (2024-2 6 season) 2024 Influenza Adult (#1) 2024 Hepatitis A Vaccines Aged Out No long er eligible based on patient's age to complete this topic Meningococcal B Vaccine Aged Out No l onger eligible based on patient's age to complete this topic Meningococcal Vaccine Aged Out No jen bhavna eligible based on patient's age to complete this topic Pneumococcal Vaccine: Pediat rics (0 to 5 Years) and At-Risk Patients (6 to 49 Years) Aged Out No longer eligible b ased on patient's age to complete this topic RSV Immunizations Under 20 Months Aged Out No longer eligible based on patient's age to complete this topic [facility] Care Teams Assembler Chassis Relationship Specialty Start Date End Date Solo Barillas MD PCP - General ANESTHESIOLOGY PAIN MEDICINE 03/05/23
--- OUTSIDE RECORDS SUMMARY | 2025-01-27 12:10 | XMS_ITS | Clinical Summary ---
Author Organization [facility] Address [address] [facility] [address] [place] [address] Phone Care Team Providers Care Real Estate Appraiser Name Role Phone Diogenes Banda Primary Care Provider [phone] Allergies Active Allergy Reactions Criticality Noted Date Comments Minocycline Rash Medium 04/28/2016 Rash, sores and redness Paroxetine Hives Medium 04/28/2016 Medications amLODIPine (NORVASC) 10 MG Tablet Take 1 Tab by mouth daily. 0 7 Active clobetasol (TEMOVATE) 0.05 % Ointment Apply 1 Applicator 2 times daily. 2 6 Active HYDROcodone-alaina taminophen (NORCO) 7.5-325 MG Tablet Take 1 Tab by mouth 2 times daily as needed. 0 7 Active hydrocortisone 2.5 % Cream Apply 1 Tube 2 times daily. 2 6 Active hydroxychloroqu ine (PLAQUENIL) 200 MG Tablet Take 2 Tabs by mouth daily. 5 7 Active raNITIdine (ZANTAC) 150 MG Tablet Take 1 Tab by mouth 2 times daily. 2 7 Active Lisdexamfetamin e Dimesylate (VYVANSE) 40 MG Capsule Take 40 mg by mouth daily. Active mirtazapine (REMERON) 15 MG Tablet Take 15 mg by mouth nightly. Active Sulfacetamide Sodium-Sulfur 10-5 % Cream daily. 7 Active FLUoxetine (PROZAC) 20 MG Capsule daily. 0 7 Active CIALIS 5 MG Tablet as needed. 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 Gender Identity Not on file Sexual Orientation Not on file Last Filed Vital Signs Vital Sign Reading Time Taken Comments Blood Pressure 132/88 09/05/2016 2:00 PM CDT Pulse 97 09/05/2016 2:00 PM CDT Temperature 36.7 C (98 F) 09/05/2016 2:00 PM CDT Respiratory Rate 16 09/05/2016 2:00 PM CDT Oxygen Saturation 98% 09/05/2016 2:00 PM CDT Inhaled Oxygen Concentration - - Weight 111.6 kg (246 lb) 09/05/2016 2:00 PM CDT Height 177.8 cm (5' 10) 09/05/2016 2:00 PM CDT Body Mass Index 35.3 09/05/2016 2:00 PM CDT Plan of Treatment Health Maintenance Due Date Last Done Comments Hepatitis C Virus (HCV) Screening 1984 TdaP Immunization 1984 SARS-COV-2 Immunization (#1) 1989 Hepatitis B Immunization (1 of 3 - 19+ 3-dose series) 06/20/2003 Human Papillomavirus (HPV) Immunization (1 - 3-dose SCDM series) 06/20/2011 Influenza Immunization (#1) 2024 Respiratory Syncytial Virus (RSV) Immunization (Adult) (1 - 1-dose 75+ series) 06/20/2059 Meningococcal Immunization (ACWY) Aged Out No longer eligible based on patient's age to complete this topic Pneumococcal Immunization Combined Aged Out No longer eligible based on patient's age to complete this topic Rotavirus Immunization Aged Out No lo nger eligible based on patient's age to complete this topic Insurance MEDICAID [facility] PL[facility] Care Teams Real Estate Appraiser Relationship Specialty Start Date End Date Diogenes Banda [address] [place] [address] PCP - General Family Medicine 03/16/16
--- OUTSIDE RECORDS SUMMARY | 2025-01-27 12:10 | XMS_ITS | Clinical Summary ---
Author Organization [facility] Address [address] [place] [id number] Care Team Providers Care Catheter Finisher And Inspector Name Role Phone Diogenes Banda MD Primary Care Provider Allergies Active Allergy Reactions Criticality Noted Date Comments Minocycline Rash Medium 08/17/2015 Rash, sores and redness Rash, sores and redness Paroxetine Hives,Rash Medium 08/17/2015 Medications amLODIPine (NORVASC) 10 mg tablet Take 1 tablet (10 mg total) by mouth daily Active carvediloL (COREG) 12.5 mg tablet Take 1 tablet (12.5 mg total) by mouth every 12 (twelve) hours 4 Active famotidine (PEPCID) 20 mg tablet Take 1 tablet (20 mg total) by mouth 2 (two) times a day 4 Active HYDROcodone-alaina taminophen (NORCO) 7.5-325 mg per tablet Take 1 tablet by mouth Active irbesartan (AVAPRO) 150 mg tablet Take 1 tablet (150 mg total) by mouth daily 4 Active rosuvastatin (CRESTOR) 20 mg tablet Take 1 tablet (20 mg total) by mouth daily 4 Active allopurinoL (ZYLOPRIM) 100 mg tablet Take 1 tablet (100 mg total) by mouth daily Active semaglutide (WEGOVY) 0.25 mg/0.5 mL auto-injector Inject 0.25 mg under the skin every 7 days Active testosterone cypionate (DEPO-TESTOTERO NE) 100 mg/mL injection Inject 1.5 mL (150 mg total) into the muscle as instructed every 14 (fourteen) days Active Active Problems Problem Noted Date Diagnosed Date Dyslipidemia 01/10/2024 Essential hypertension 01/10/2024 Hypogonadism in male 01/10/2024 Mild left ventricular hypertrophy 01/10/2024 History of non-ST elevation myocardial infarctio n (NSTEMI) 01/10/2024 Surgical History Surgery Date Site/Laterality Comments DISTAL BICEPS TENDON REPAIR Left Medical History Medical History Date Comments Hypertension Family History Relation Name Status Comments Father Mother Alive Social History Tobacco Use Types Packs/Day Years Used Date Smoking Tobacco: Never Passive Smoke Exposure: Never Smokeless Tobacco: Never Tobacco Cessation:Counseling Given: Not Answered Sex and Gender Information Value Date Recorded Sex Assigned at Not on file 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 Gender Identity Not on file Sexual Orientation Not on file Obstetrics History Last Filed Vital Signs Vital Sign Reading Time Taken Comments Blood Pressure 116/74 07/08/2024 8:58 AM CDT Pulse 79 07/08/2024 8:58 AM CDT Temperature - - Respiratory Rate - - Oxygen Saturation 97% 07/08/2024 8:58 AM CDT Inhaled Oxygen Concentration - - Weight 133.4 kg (294 lb) 07/08/2024 8:58 AM CDT Height 177.8 cm (5' 10) 07/08/2024 8:58 AM CDT Body Mass Index 42.18 07/08/2024 8:58 AM CDT Plan of Treatment Health Maintenance Due Date Last Done Comments Depression Screening 1984 Hepatitis C Screening 1984 DTaP/Tdap/Td Vaccine (1 - Tdap) 06/20/1995 Varicella Vaccines (1 of 2 - 13+ 2-dose series) 1997 Hepatitis B Screening 2002 Regular Well Visit/Exam 18-64 2002 HPV Vaccines (1 - 3-dose SCD M series) 06/20/2011 Influenza Vaccine (#1) 2024 8, 12/21/2014 Pneumococcal vaccine <65 Aged Out No longer eligible based on patient's age to complete this topic Insurance [facility] Care Teams Catheter Finisher And Inspector Relationship Specialty Start Date End Date Diogenes Banda MD [facility] [address] [address] PCP - General Family Medicine 10/26/21
--- OUTSIDE RECORDS SUMMARY | 2025-01-27 13:33 | XMS_ITS | Clinical Summary ---
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 [place] [address] PCP - General Family Medicine 10/26/21
--- OUTSIDE RECORDS SUMMARY | 2025-01-27 13:33 | XMS_ITS | Clinical Summary ---
Author Organization [facility] Address [address] [place] [id number] Care Team Providers Care Press Operator Name Role Phone Solo Barillas MD Primary Care Provider Social History Tobacco Use Types Packs/Day Years [...] patient's age to complete this topic [facility] Care Teams Press Operator Relationship Specialty Start Date End Date Solo Barillas MD PCP - General ANESTHESIOLOGY PAIN MEDICINE 03/05/23
--- OUTSIDE RECORDS SUMMARY | 2025-01-27 13:33 | XMS_ITS | Clinical Summary ---
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
== END 2025-01-27 12:00 | disposition home or self-care (01) ==
PROVIDERS: Emergency Provider Emergency Medicine; PCP Emergency Medicine
DX: M54.50 Low back pain, unspecified (principal); I10 Essential (primary) hypertension; E78.5 Hyperlipidemia, unspecified; K21.9 Gastro-esophageal reflux disease without esophagitis; K58.0 Irritable bowel syndrome with diarrhea; M19.90 Unspecified osteoarthritis, unspecified site; M10.9 Gout, unspecified; Z79.899 Other long term (current) drug therapy
CPT/HCPCS: 81003; 96372; 99283; A9270; J1885

== ENCOUNTER → 2025-02-18 10:06 | Outpatient (CLI) | payer MEDICAID, SELFPAY ==
--- NOTE | ~2025-02-18 | XR_ITS ---
EXAMINATION: XR shoulder LT min 2V, 02/18/2025 10:10 [facility] POLISHER HISTORY: PAIN COMPARISON: No comparisons available. Findings: No acute fracture or malalignment. No significant degenerative changes. Soft tissues unremarkable. Impression: No acute fracture or malalignment. Reviewed, dictated and finalized at location P. [facility] POLISHER Impression: No acute fracture or malalignment.
== END ==
LOC: EXPCRAD 10:08
PROVIDERS: PCP Emergency Medicine; Visit Provider Emergency Medicine
DX: M25.512 Pain in left shoulder (principal)
CPT/HCPCS: 73030